=== PATIENT | male | born 1945 | race Caucasian/White ===

== ENCOUNTER 2018-07-02 04:53 | Inpatient (IN) | payer MEDICARE, OTHER ==
[~2018-07-02] VITALS: Ht 185.4 cm; Wt 88.5 kg
[2018-07-02] VITALS (16 sets, daily range): BP systolic 101–132; BP diastolic 42–68
[2018-07-02] MEDS ORDERED: fentaNYL/PF 50MCG/1 ML 2ML syringe IV ONE (05:10)
[2018-07-02] MEDS ORDERED: heparin 10,000 units/1 ML INJ IV ONE (05:10)
[2018-07-02] MEDS ORDERED: etomidate 2mg/ml inj. IV ONE (05:10)
[2018-07-02] MEDS ORDERED: ondansetron/PF 4mg/2ml inj IV ONE (05:10)
[2018-07-02 05:30] LABS: BASOPHILS % (AUTO) 0.7 % (0-1); EOSINOPHILS # (AUTO) 0.1 X10'3 (0-0.9); HEMATOCRIT 45.2 % (42.0-52.0); HEMOGLOBIN 15.4 g/dl (14.0-17.9); LYMPHOCYTES # (AUTO) 1.1 X10'3 (1.1-4.8); LYMPHOCYTES % (AUTO) 26.3 % (21-51); MEAN CORPUSCULAR HEMOGLOBIN 28.9 PG (27.0-31.0); MEAN CORPUSCULAR VOLUME 84.9 FL (78-98); MEAN PLATELET VOLUME 9.4 FL (7.4-10.4); MONOCYTES # (AUTO) 0.4 X10'3 (0-0.9); MONOCYTES % (AUTO) 9.1 % (2-12); NEUTROPHILS # (AUTO) 2.6 X10'3 (1.8-7.7); NEUTROPHILS % (AUTO) 60.9 % (42-75); PLATELET COUNT 185 X10'3 (140-440); RED BLOOD COUNT 5.32 X10'6 (4.70-6.10); RED CELL DISTRIBUTION WIDTH 13.4 % (11.5-14.5); WHITE BLOOD COUNT 4.3 X10'3 (4.5-11.0)
[2018-07-02 05:38] LABS: ALANINE AMINOTRANSFERASE 24 U/L (12-78); ALBUMIN 3.7 G/DL (3.4-5.0); ALBUMIN/GLOBULIN RATIO 1.2 (1.1-1.5); ALKALINE PHOSPHATASE 49 IU/L (46-116); ANION GAP 7 (8-16); ASPARTATE AMINO TRANSFERASE 18 U/L (10-37); BILIRUBIN,TOTAL 0.6 MG/DL (0.1-1.0); BLOOD UREA NITROGEN 16 MG/DL (7-18); BUN/CREATININE RATIO 13.3 (5.4-32.0); CALCIUM 8.7 MG/DL (8.5-10.1); CHLORIDE 108 MMOL/L (99-107); GLUCOSE 81 MG/DL (70-104); SODIUM 143 MMOL/L (135-145); TOTAL CARBON DIOXIDE 28.4 MMOL/L (24-32); TOTAL PROTEIN 6.9 G/DL (6.4-8.2); eGFR 59 ML/MIN
[2018-07-02] MEDS ORDERED: APIX5TAB3 PO (05:55)
[2018-07-02] MEDS ORDERED: SOTA80TA PO (05:55)
[2018-07-02 06:03] LABS: D-DIMER 0.32 MG/L FEU (0-0.50); PARTIAL THROMBOPLASTIN TIME 28 SECONDS (22-32); PROTHROMBIN TIME 10.4 SECONDS (9.0-12.0)
[2018-07-02] MEDS ORDERED: heparin 25,000 UNIT/250ml bag 250 ML IV SCH ×2 (06:41→08:18)
[2018-07-02] MEDS: heparin 10,000 units/1 ML INJ IV PRN (07:23)
[2018-07-02] MEDS: heparin 25,000 UNIT/250ml bag 250 ML IV SCH ×3 (07:26→19:20)
[2018-07-02] MEDS ORDERED: ondansetron/PF 4mg/2ml inj IV PRN (08:15)
[2018-07-02] MEDS ORDERED: magnesium 1gm/100ml D5W IVPB 100 ML IV PRN (08:15)
[2018-07-02] MEDS ORDERED: potassium Cl 20 mEq SR tablet PO PRN ×2 (08:15)
[2018-07-02] MEDS ORDERED: potassium Cl 40MEQ/NS 500ml 500 ML IV PRN ×2 (08:15)
[2018-07-02] MEDS ORDERED: bisacodyl 10mg suppository rectal RC PRN (08:15)
[2018-07-02] MEDS ORDERED: magnesium 4gm in 100ml NS 100 ML IV PRN (08:15)
[2018-07-02] MEDS ORDERED: magnesium hydroxide 30ml (MOM) UD suspension PO PRN (08:15)
[2018-07-02] MEDS ORDERED: acetaminophen 325mg tablet PO PRN (08:15)
[2018-07-02] MEDS ORDERED: morphine 2 MG/ML inj. syringe IV PRN ×2 (08:15)
[2018-07-02] MEDS ORDERED: mag hydrox/Alum hydrox/simeth 30ml oral suspension PO PRN (08:15)
[2018-07-02] MEDS ORDERED: metoprolol tartrate 1mg/ml inj IV PRN (08:20)
[2018-07-02] MEDS ORDERED: aminophylline 250mg/10ml inj. IV PRN (08:20)
[2018-07-02] MEDS: aspirin 81mg tablet.DR PO SCH (08:20)
[2018-07-02] MEDS ORDERED: regadenoson 0.4mg/5ml syringe IV ONE ×2 (08:20→14:58)
[2018-07-02] MEDS ORDERED: nitroGLYCERIN 0.4mg SUBLingual tab SL PRN ×2 (08:20)
[2018-07-02] MEDS ORDERED: metoprolol tartrate 25mg tablet PO SCH (08:20)
[2018-07-02] MEDS ORDERED: heparin 10,000 units/1 ML INJ IV PRN (08:20)
[2018-07-02] MEDS ORDERED: FERR325T28 PO (08:42)
[2018-07-02] MEDS ORDERED: CHOL10002 PO (08:42)
[2018-07-02] MEDS ORDERED: ASPI-611 PO (08:43)
[2018-07-02] MEDS ORDERED: CYAN-19 PO (08:44)
[2018-07-02] MEDS ORDERED: SIMV20TA5 PO (08:44)
[2018-07-02] MEDS ORDERED: heparin 10,000 units/1 ML INJ ONE (09:00)
[2018-07-02] MEDS ORDERED: papaverine 30 mg/ml 2ml inj. ONE (09:00)
[2018-07-02] MEDS: potassium Cl 20mEq in NS 1,000 ML IV SCH ×2 (09:56→22:29)
[2018-07-02] MEDS ORDERED: aminophylline inj. 10 ML IV ONE (14:58)
[2018-07-02] MEDS: docusate sod 100mg capsule PO SCH (19:06)
[2018-07-02] MEDS: metoprolol tartrate 12.5mg (1/2 tablet) PO SCH (19:06)
[2018-07-03] VITALS (13 sets, daily range): BP systolic 108–160; BP diastolic 54–106
[2018-07-03] MEDS: heparin 10,000 units/1 ML INJ IV PRN (01:23)
[2018-07-03] MEDS: heparin 25,000 UNIT/250ml bag 250 ML IV SCH ×3 (01:25→21:28)
[2018-07-03] MEDS: potassium Cl 20mEq in NS 1,000 ML IV SCH (02:09)
[2018-07-03 06:11] LABS: BASOPHILS % (AUTO) 0.6 % (0-1); EOSINOPHILS # (AUTO) 0.1 X10'3 (0-0.9); EOSINOPHILS % (AUTO) 3.7 % (0-6); HEMATOCRIT 42.8 % (42.0-52.0); HEMOGLOBIN 14.3 g/dl (14.0-17.9); LYMPHOCYTES # (AUTO) 0.9 X10'3 (1.1-4.8); LYMPHOCYTES % (AUTO) 23.1 % (21-51); MEAN CORPUSCULAR HEMOGLOBIN 28.8 PG (27.0-31.0); MEAN CORPUSCULAR HGB CONC 33.5 % (33.0-36.5); MEAN PLATELET VOLUME 9.7 FL (7.4-10.4); MONOCYTES # (AUTO) 0.3 X10'3 (0-0.9); MONOCYTES % (AUTO) 7.1 % (2-12); NEUTROPHILS # (AUTO) 2.5 X10'3 (1.8-7.7); NEUTROPHILS % (AUTO) 65.5 % (42-75); PLATELET COUNT 171 X10'3 (140-440); RED BLOOD COUNT 4.98 X10'6 (4.70-6.10); RED CELL DISTRIBUTION WIDTH 13.3 % (11.5-14.5); WHITE BLOOD COUNT 3.8 X10'3 (4.5-11.0)
[2018-07-03 06:47] LABS: ALANINE AMINOTRANSFERASE 22 U/L (12-78); ALBUMIN 3.5 G/DL (3.4-5.0); ALBUMIN/GLOBULIN RATIO 1.1 (1.1-1.5); ALKALINE PHOSPHATASE 41 IU/L (46-116); ANION GAP 8 (8-16); ASPARTATE AMINO TRANSFERASE 22 U/L (10-37); BILIRUBIN,TOTAL 0.7 MG/DL (0.1-1.0); BLOOD UREA NITROGEN 12 MG/DL (7-18); BUN/CREATININE RATIO 9.3 (5.4-32.0); CALCIUM 8.5 MG/DL (8.5-10.1); CHLORIDE 108 MMOL/L (99-107); CHOL/HDL RATIO 2.4 (0.00-4.99); CHOLESTEROL 145 MG/DL (0-200); CREATININE 1.29 MG/DL (0.60-1.10); GLUCOSE 88 MG/DL (70-104); HDL CHOLESTEROL 60 MG/DL (35-60); LDL CHOLESTEROL 82 MG/DL (50-100); POTASSIUM 4.4 MMOL/L (3.5-5.1); SODIUM 142 MMOL/L (135-145); TOTAL CARBON DIOXIDE 26.3 MMOL/L (24-32); TOTAL PROTEIN 6.6 G/DL (6.4-8.2); TRIGLYCERIDES 49 MG/DL (20-135); eGFR 55 ML/MIN
[2018-07-03] MEDS: cyanocobalamin 500mcg tablet PO SCH (07:17)
[2018-07-03] MEDS: aspirin 81mg tablet.DR PO SCH (07:17)
[2018-07-03] MEDS: vitamin D (cholecalciferol) 1,000 unit tablet PO SCH (07:17)
[2018-07-03] MEDS: atorvastatin 20mg tablet PO SCH (07:17)
[2018-07-03] MEDS: docusate sod 100mg capsule PO SCH ×2 (07:19→21:07)
[2018-07-03] MEDS: K and/or MAG REPLACEMENT MC SCH (07:31)
[2018-07-03] MEDS: metoprolol tartrate 12.5mg (1/2 tablet) PO SCH ×2 (07:34→20:00)
[2018-07-03] MEDS ORDERED: non-formulary drug (Aspirin (Aspir 81) 1 TAB) PO SCH (08:00)
[2018-07-03] MEDS ORDERED: iohexol 350MG/ML 100ml bottle IV ONE (13:08)
[2018-07-03] MEDS ORDERED: fentaNYL/PF 50MCG/1 ML 2ML syringe ONE (13:08)
[2018-07-03] MEDS ORDERED: midazolam 2 mg/2 ml injection ONE (13:08)
[2018-07-03] MEDS ORDERED: LIDOcaine 1% (10mg/ml)w/preservative injection 20ml MDV ONE (13:08)
[2018-07-03] MEDS ORDERED: iohexol 350 MG/ML 50ML vial IV ONE (13:34)
[2018-07-03] MEDS ORDERED: HYDROcodone/acetaminophen 10/325mg tab PO PRN (15:00)
[2018-07-03] MEDS ORDERED: HYDROcodone/acetaminophen 5mg/325mg tablet PO PRN (15:00)
[2018-07-03] MEDS ORDERED: proCHLORperazine 10 MG/2 ml inj IV PRN (15:00)
[2018-07-03] MEDS: normal saline 1000ml 1,000 ML IV SCH (15:00)
[2018-07-03] MEDS ORDERED: nitroGLYCERIN 0.4mg SUBLingual tab SL PRN (15:00)
[2018-07-03] MEDS ORDERED: OXAZEpam 15mg capsule PO PRN (15:00)
[2018-07-04] VITALS (7 sets, daily range): BP systolic 111–144; BP diastolic 50–91
[2018-07-04] MEDS: normal saline 1000ml 1,000 ML IV SCH ×2 (01:00→11:00)
[2018-07-04] MEDS: heparin 25,000 UNIT/250ml bag 250 ML IV SCH ×3 (02:16→21:04)
[2018-07-04] MEDS: potassium Cl 20mEq in NS 1,000 ML IV SCH ×2 (03:05→10:14)
[2018-07-04 05:44] LABS: BASOPHILS % (AUTO) 0.3 % (0-1); EOSINOPHILS # (AUTO) 0.1 X10'3 (0-0.9); EOSINOPHILS % (AUTO) 1.4 % (0-6); HEMATOCRIT 37.7 % (42.0-52.0); HEMOGLOBIN 12.9 g/dl (14.0-17.9); LYMPHOCYTES # (AUTO) 0.8 X10'3 (1.1-4.8); LYMPHOCYTES % (AUTO) 18.7 % (21-51); MEAN CORPUSCULAR HGB CONC 34.2 % (33.0-36.5); MEAN CORPUSCULAR VOLUME 84.8 FL (78-98); MEAN PLATELET VOLUME 9.6 FL (7.4-10.4); MONOCYTES # (AUTO) 0.3 X10'3 (0-0.9); MONOCYTES % (AUTO) 7.7 % (2-12); NEUTROPHILS % (AUTO) 71.9 % (42-75); PLATELET COUNT 155 X10'3 (140-440); RED BLOOD COUNT 4.45 X10'6 (4.70-6.10); RED CELL DISTRIBUTION WIDTH 13.4 % (11.5-14.5); WHITE BLOOD COUNT 4.2 X10'3 (4.5-11.0)
[2018-07-04 06:01] LABS: ALANINE AMINOTRANSFERASE 19 U/L (12-78); ALBUMIN 3.1 G/DL (3.4-5.0); ALBUMIN/GLOBULIN RATIO 1.1 (1.1-1.5); ALKALINE PHOSPHATASE 37 IU/L (46-116); ANION GAP 8 (8-16); ASPARTATE AMINO TRANSFERASE 17 U/L (10-37); BILIRUBIN,TOTAL 0.6 MG/DL (0.1-1.0); BLOOD UREA NITROGEN 14 MG/DL (7-18); BUN/CREATININE RATIO 13.3 (5.4-32.0); CALCIUM 8.4 MG/DL (8.5-10.1); CHLORIDE 108 MMOL/L (99-107); CREATININE 1.05 MG/DL (0.60-1.10); GLUCOSE 85 MG/DL (70-104); MAGNESIUM 1.8 MG/DL (1.5-2.4); POTASSIUM 3.7 MMOL/L (3.5-5.1); SODIUM 142 MMOL/L (135-145); TOTAL CARBON DIOXIDE 26.4 MMOL/L (24-32); TOTAL PROTEIN 5.9 G/DL (6.4-8.2); eGFR 69 ML/MIN
[2018-07-04] MEDS: heparin 10,000 units/1 ML INJ IV PRN ×2 (07:54→21:05)
[2018-07-04] MEDS ORDERED: potassium Cl 40MEQ/NS 500ml 500 ML IV PRN ×2 (08:10)
[2018-07-04] MEDS ORDERED: magnesium 4gm in 100ml NS 100 ML IV PRN (08:10)
[2018-07-04] MEDS ORDERED: potassium Cl 20 mEq SR tablet PO PRN (08:10)
[2018-07-04] MEDS: metoprolol tartrate 12.5mg (1/2 tablet) PO SCH ×2 (08:28→20:00)
[2018-07-04] MEDS: docusate sod 100mg capsule PO SCH ×2 (08:28→20:50)
[2018-07-04] MEDS: atorvastatin 20mg tablet PO SCH (08:28)
[2018-07-04] MEDS: magnesium Cl slow-release 64mg tablet PO PRN ×2 (08:28→21:07)
[2018-07-04] MEDS: cyanocobalamin 500mcg tablet PO SCH (08:29)
[2018-07-04] MEDS: vitamin D (cholecalciferol) 1,000 unit tablet PO SCH (08:29)
[2018-07-04] MEDS: ferrous sulfate 325mg tablet PO SCH (08:30)
[2018-07-04] MEDS: aspirin 81mg tablet.DR PO SCH (08:30)
[2018-07-04] MEDS: K and/or MAG REPLACEMENT MC SCH ×2 (08:30→13:29)
[2018-07-04] MEDS: potassium Cl 20 mEq SR tablet PO PRN (20:50)
[2018-07-05] VITALS (7 sets, daily range): BP systolic 103–133; BP diastolic 44–63
[2018-07-05 03:21] LABS: BASOPHILS % (AUTO) 0.8 % (0-1); EOSINOPHILS # (AUTO) 0.1 X10'3 (0-0.9); EOSINOPHILS % (AUTO) 4.2 % (0-6); HEMATOCRIT 38.4 % (42.0-52.0); HEMOGLOBIN 13.1 g/dl (14.0-17.9); LYMPHOCYTES # (AUTO) 0.7 X10'3 (1.1-4.8); LYMPHOCYTES % (AUTO) 24.2 % (21-51); MEAN CORPUSCULAR HEMOGLOBIN 29.1 PG (27.0-31.0); MEAN CORPUSCULAR HGB CONC 34.1 % (33.0-36.5); MEAN CORPUSCULAR VOLUME 85.2 FL (78-98); MEAN PLATELET VOLUME 9.2 FL (7.4-10.4); MONOCYTES # (AUTO) 0.3 X10'3 (0-0.9); MONOCYTES % (AUTO) 9.2 % (2-12); NEUTROPHILS # (AUTO) 1.9 X10'3 (1.8-7.7); NEUTROPHILS % (AUTO) 61.6 % (42-75); PLATELET COUNT 146 X10'3 (140-440); RED BLOOD COUNT 4.51 X10'6 (4.70-6.10); RED CELL DISTRIBUTION WIDTH 13.6 % (11.5-14.5); WHITE BLOOD COUNT 3.1 X10'3 (4.5-11.0)
[2018-07-05 03:41] LABS: ALANINE AMINOTRANSFERASE 21 U/L (12-78); ALBUMIN 3.2 G/DL (3.4-5.0); ALBUMIN/GLOBULIN RATIO 1.1 (1.1-1.5); ALKALINE PHOSPHATASE 40 IU/L (46-116); ANION GAP 11 (8-16); ASPARTATE AMINO TRANSFERASE 20 U/L (10-37); BILIRUBIN,TOTAL 0.7 MG/DL (0.1-1.0); BLOOD UREA NITROGEN 15 MG/DL (7-18); BUN/CREATININE RATIO 14.9 (5.4-32.0); CALCIUM 8.3 MG/DL (8.5-10.1); CHLORIDE 107 MMOL/L (99-107); CREATININE 1.01 MG/DL (0.60-1.10); GLUCOSE 88 MG/DL (70-104); MAGNESIUM 1.9 MG/DL (1.5-2.4); POTASSIUM 3.9 MMOL/L (3.5-5.1); SODIUM 142 MMOL/L (135-145); TOTAL CARBON DIOXIDE 23.8 MMOL/L (24-32); TOTAL PROTEIN 6.1 G/DL (6.4-8.2); eGFR 72 ML/MIN
[2018-07-05] MEDS: magnesium Cl slow-release 64mg tablet PO PRN (04:14)
[2018-07-05] MEDS: potassium Cl 20 mEq SR tablet PO PRN (04:14)
[2018-07-05] MEDS: potassium Cl 20mEq in NS 1,000 ML IV SCH (04:14)
[2018-07-05] MEDS: heparin 25,000 UNIT/250ml bag 250 ML IV SCH ×2 (04:18→11:01)
[2018-07-05] MEDS: docusate sod 100mg capsule PO SCH ×2 (08:33→20:42)
[2018-07-05] MEDS: aspirin 81mg tablet.DR PO SCH (08:34)
[2018-07-05] MEDS: vitamin D (cholecalciferol) 1,000 unit tablet PO SCH (08:34)
[2018-07-05] MEDS: cyanocobalamin 500mcg tablet PO SCH (08:34)
[2018-07-05] MEDS: ferrous sulfate 325mg tablet PO SCH (08:34)
[2018-07-05] MEDS: metoprolol tartrate 12.5mg (1/2 tablet) PO SCH ×2 (08:34→20:42)
[2018-07-05] MEDS: atorvastatin 20mg tablet PO SCH (08:34)
[2018-07-05] MEDS: heparin 10,000 units/1 ML INJ IV PRN (10:56)
[2018-07-05] MEDS: enoxaparin 100mg/ml syringe SUBCUT SCH (20:41)
[2018-07-06 02:53] VITALS: BP 133/64
[2018-07-06 06:00] VITALS: BP 126/60
[2018-07-06 06:49] LABS: BASOPHILS % (AUTO) 0.4 % (0-1); EOSINOPHILS # (AUTO) 0.1 X10'3 (0-0.9); EOSINOPHILS % (AUTO) 3.2 % (0-6); HEMATOCRIT 41.2 % (42.0-52.0); HEMOGLOBIN 13.8 g/dl (14.0-17.9); LYMPHOCYTES # (AUTO) 0.6 X10'3 (1.1-4.8); LYMPHOCYTES % (AUTO) 21.8 % (21-51); MEAN CORPUSCULAR HEMOGLOBIN 28.1 PG (27.0-31.0); MEAN CORPUSCULAR HGB CONC 33.4 % (33.0-36.5); MEAN CORPUSCULAR VOLUME 84.2 FL (78-98); MEAN PLATELET VOLUME 9.7 FL (7.4-10.4); MONOCYTES # (AUTO) 0.2 X10'3 (0-0.9); NEUTROPHILS # (AUTO) 1.8 X10'3 (1.8-7.7); NEUTROPHILS % (AUTO) 66.6 % (42-75); PLATELET COUNT 163 X10'3 (140-440); RED BLOOD COUNT 4.89 X10'6 (4.70-6.10); RED CELL DISTRIBUTION WIDTH 13.2 % (11.5-14.5); WHITE BLOOD COUNT 2.7 X10'3 (4.5-11.0)
[2018-07-06 07:02] LABS: ALANINE AMINOTRANSFERASE 27 U/L (12-78); ALBUMIN 3.4 G/DL (3.4-5.0); ALBUMIN/GLOBULIN RATIO 1.1 (1.1-1.5); ALKALINE PHOSPHATASE 38 IU/L (46-116); ANION GAP 10 (8-16); ASPARTATE AMINO TRANSFERASE 26 U/L (10-37); BILIRUBIN,TOTAL 0.7 MG/DL (0.1-1.0); BLOOD UREA NITROGEN 16 MG/DL (7-18); BUN/CREATININE RATIO 15.8 (5.4-32.0); CHLORIDE 107 MMOL/L (99-107); CREATININE 1.01 MG/DL (0.60-1.10); GLUCOSE 87 MG/DL (70-104); MAGNESIUM 1.9 MG/DL (1.5-2.4); POTASSIUM 3.8 MMOL/L (3.5-5.1); SODIUM 142 MMOL/L (135-145); TOTAL CARBON DIOXIDE 25.5 MMOL/L (24-32); TOTAL PROTEIN 6.5 G/DL (6.4-8.2); eGFR 72 ML/MIN
[2018-07-06] MEDS: K and/or MAG REPLACEMENT MC SCH (08:00)
[2018-07-06] MEDS: cyanocobalamin 500mcg tablet PO SCH (08:43)
[2018-07-06] MEDS: vitamin D (cholecalciferol) 1,000 unit tablet PO SCH (08:43)
[2018-07-06] MEDS: docusate sod 100mg capsule PO SCH ×2 (08:44→19:49)
[2018-07-06] MEDS: aspirin 81mg tablet.DR PO SCH (08:44)
[2018-07-06] MEDS: enoxaparin 100mg/ml syringe SUBCUT SCH ×2 (08:46→19:50)
[2018-07-06] MEDS: metoprolol tartrate 12.5mg (1/2 tablet) PO SCH ×2 (08:46→19:49)
[2018-07-06] MEDS: atorvastatin 20mg tablet PO SCH (08:46)
[2018-07-06] MEDS ORDERED: insulin regular, human inj. 100 UNITS in normal saline 100ml IV soln 100 ML IV SCH ×2 (10:30)
[2018-07-06] MEDS ORDERED: cefazolin/dext.iso 2gm/100ml 100 ML IV ONE (10:30)
[2018-07-06] MEDS ORDERED: dextrose 50%-water 50ml dispensing syringe IV PRN (10:30)
[2018-07-06] MEDS ORDERED: MESSAGE TO NURSING PO ONE ×4 (10:30)
[2018-07-06] MEDS ORDERED: vancomycin/NS 1 GM ADD-VANTAGE 250 ML IV ONE (10:30)
[2018-07-06 11:00] VITALS: BP 137/72
[2018-07-06 12:26] LABS: INR 1.1 INR; PARTIAL THROMBOPLASTIN TIME 36 SECONDS (22-32); PROTHROMBIN TIME 10.9 SECONDS (9.0-12.0)
[2018-07-06] MEDS ORDERED: insulin Lispro (HumaLOG) vial - multi-dose SQ SCH (13:00)
[2018-07-06 15:00] VITALS: BP 118/64
[2018-07-06 19:00] VITALS: BP 110/61
[2018-07-06] MEDS ORDERED: mupirocin 2% ointment 22GM NS SCH (20:00)
[2018-07-06 23:00] VITALS: BP 114/59
[2018-07-07 03:00] VITALS: BP 107/60
[2018-07-07 06:00] VITALS: BP 114/62
[2018-07-07 06:01] LABS: BASOPHILS % (AUTO) 0.5 % (0-1); EOSINOPHILS # (AUTO) 0.1 X10'3 (0-0.9); EOSINOPHILS % (AUTO) 2.8 % (0-6); HEMATOCRIT 41.5 % (42.0-52.0); HEMOGLOBIN 14.2 g/dl (14.0-17.9); LYMPHOCYTES # (AUTO) 0.8 X10'3 (1.1-4.8); LYMPHOCYTES % (AUTO) 22.8 % (21-51); MEAN CORPUSCULAR HGB CONC 34.2 % (33.0-36.5); MEAN CORPUSCULAR VOLUME 84.8 FL (78-98); MEAN PLATELET VOLUME 9.6 FL (7.4-10.4); MONOCYTES # (AUTO) 0.3 X10'3 (0-0.9); NEUTROPHILS # (AUTO) 2.2 X10'3 (1.8-7.7); NEUTROPHILS % (AUTO) 65.9 % (42-75); PLATELET COUNT 172 X10'3 (140-440); RED BLOOD COUNT 4.89 X10'6 (4.70-6.10); RED CELL DISTRIBUTION WIDTH 13.5 % (11.5-14.5); WHITE BLOOD COUNT 3.3 X10'3 (4.5-11.0)
[2018-07-07 06:29] LABS: ALANINE AMINOTRANSFERASE 39 U/L (12-78); ALBUMIN 3.4 G/DL (3.4-5.0); ALBUMIN/GLOBULIN RATIO 1.1 (1.1-1.5); ALKALINE PHOSPHATASE 46 IU/L (46-116); ANION GAP 9 (8-16); ASPARTATE AMINO TRANSFERASE 35 U/L (10-37); BILIRUBIN,TOTAL 0.7 MG/DL (0.1-1.0); BLOOD UREA NITROGEN 19 MG/DL (7-18); BUN/CREATININE RATIO 16.1 (5.4-32.0); CALCIUM 9.3 MG/DL (8.5-10.1); CHLORIDE 105 MMOL/L (99-107); CREATININE 1.18 MG/DL (0.60-1.10); GLUCOSE 89 MG/DL (70-104); MAGNESIUM 1.8 MG/DL (1.5-2.4); SODIUM 141 MMOL/L (135-145); TOTAL CARBON DIOXIDE 27.5 MMOL/L (24-32); TOTAL PROTEIN 6.6 G/DL (6.4-8.2); eGFR 61 ML/MIN
[2018-07-07] MEDS: K and/or MAG REPLACEMENT MC SCH (08:00)
[2018-07-07] MEDS: atorvastatin 20mg tablet PO SCH (08:02)
[2018-07-07] MEDS: metoprolol tartrate 12.5mg (1/2 tablet) PO SCH ×2 (08:02→20:27)
[2018-07-07] MEDS: cyanocobalamin 500mcg tablet PO SCH (08:02)
[2018-07-07] MEDS: aspirin 81mg tablet.DR PO SCH (08:02)
[2018-07-07] MEDS: docusate sod 100mg capsule PO SCH ×2 (08:02→20:27)
[2018-07-07] MEDS: ferrous sulfate 325mg tablet PO SCH (08:02)
[2018-07-07] MEDS: enoxaparin 100mg/ml syringe SUBCUT SCH ×2 (08:02→20:27)
[2018-07-07] MEDS: vitamin D (cholecalciferol) 1,000 unit tablet PO SCH (08:04)
[2018-07-07] MEDS ORDERED: MESSAGE TO NURSING PO ONE (10:00)
[2018-07-07] MEDS ORDERED: iohexol 350MG/ML 100ml bottle IV ONE (11:40)
[2018-07-07 14:29] VITALS: BP 111/64
[2018-07-07 18:00] VITALS: BP 123/77
[2018-07-07] MEDS: magnesium Cl slow-release 64mg tablet PO SCH (20:27)
[2018-07-07 22:00] VITALS: BP 110/52
[2018-07-08] VITALS (8 sets, daily range): BP systolic 97–127; BP diastolic 52–69
[2018-07-08 07:12] LABS: MAGNESIUM 1.9 MG/DL (1.5-2.4); POTASSIUM 3.6 MMOL/L (3.5-5.1)
[2018-07-08] MEDS: vitamin D (cholecalciferol) 1,000 unit tablet PO SCH (07:39)
[2018-07-08] MEDS: aspirin 81mg tablet.DR PO SCH (07:39)
[2018-07-08] MEDS: cyanocobalamin 500mcg tablet PO SCH (07:39)
[2018-07-08] MEDS: docusate sod 100mg capsule PO SCH ×2 (07:40→20:18)
[2018-07-08] MEDS: atorvastatin 20mg tablet PO SCH (07:40)
[2018-07-08] MEDS: magnesium Cl slow-release 64mg tablet PO SCH ×2 (07:40→20:17)
[2018-07-08] MEDS: K and/or MAG REPLACEMENT MC SCH (08:00)
[2018-07-08] MEDS: metoprolol tartrate 12.5mg (1/2 tablet) PO SCH ×2 (09:14→20:18)
[2018-07-08 10:06] LABS: ABG BASE EXCESS 0.7 mmol/L (-2.0-3.0); ABG HCO3 23.2 mmol/L (22.0-26.0); ABG OXYGEN SATURATION 96.7 % (95-98); ABG PCO2 (T) 31.2 mmHg (35.0-48.0); ABG PH (T) 7.489 (7.350-7.450); ABG PO2 (T) 84.1 mmHg (83-108); ALLEN'S TEST Positive; FCOHb 0.6 % (0.5-1.5); FO2Hb 96.1 % (94-100); TOTAL HEMOGLOBIN 14.4 G/dl (14.0-18.0)
[2018-07-08 14:47] LABS: CLARITY,URINE CLEAR (Clear); COLOR,URINE YELLOW (Yellow); GLUCOSE, URINE NEGATIVE (Neg); KETONES,URINE NEGATIVE (Neg); LEUKOCYTE ESTERASE ,URINE NEGATIVE (Neg); NITRITES, URINE NEGATIVE (Neg); OCCULT BLOOD,URINE TRACE-INTACT (Neg); PROTEIN,URINE NEGATIVE (Neg); UROBILINOGEN,URINE 0.2 E.U/dL (0.2-1.0)
[2018-07-08 14:48] LABS: UA COLLECTION TYPE VOIDED
[2018-07-08 15:06] LABS: SQUAMOUS EPITHELIAL CELL,UR NONE SEEN /LPF (FEW)
[2018-07-08 15:07] LABS: RBC,URINE 0-2 /HPF (0-2); WBC,URINE 0-4 /HPF (0-4)
[2018-07-08 15:08] LABS: BACTERIA,URINE FEW /HPF (Neg)
[2018-07-08] MEDS ORDERED: mupirocin 2% nasal ointment 1gm UD NS SCH (20:00)
[2018-07-09] VITALS (12 sets, daily range): BP systolic 95–128; BP diastolic 8–62
[2018-07-09] MEDS ORDERED: LORazepam 2 mg/ml vial IV ONE (06:00)
[2018-07-09] MEDS ORDERED: vancomycin/NS 1 GM ADD-VANTAGE 250 ML IV ONE (06:00)
[2018-07-09] MEDS ORDERED: cefazolin/dext.iso 2gm/100ml 100 ML IV ONE (06:00)
[2018-07-09] MEDS ORDERED: insulin regular, human inj. 100 UNITS in normal saline 100ml IV soln 100 ML IV SCH ×2 (06:00)
[2018-07-09] MEDS ORDERED: famotidine 20mg tablet PO ONE (06:00)
[2018-07-09 06:38] LABS: BASOPHILS % (AUTO) 0.4 % (0-1); EOSINOPHILS # (AUTO) 0.1 X10'3 (0-0.9); HEMATOCRIT 42.8 % (42.0-52.0); HEMOGLOBIN 14.6 g/dl (14.0-17.9); LYMPHOCYTES # (AUTO) 0.6 X10'3 (1.1-4.8); LYMPHOCYTES % (AUTO) 21.9 % (21-51); MEAN CORPUSCULAR HEMOGLOBIN 28.9 PG (27.0-31.0); MEAN CORPUSCULAR HGB CONC 34.1 % (33.0-36.5); MEAN CORPUSCULAR VOLUME 84.6 FL (78-98); MEAN PLATELET VOLUME 9.3 FL (7.4-10.4); MONOCYTES # (AUTO) 0.3 X10'3 (0-0.9); MONOCYTES % (AUTO) 8.6 % (2-12); NEUTROPHILS # (AUTO) 1.9 X10'3 (1.8-7.7); NEUTROPHILS % (AUTO) 66.1 % (42-75); PLATELET COUNT 159 X10'3 (140-440); RED BLOOD COUNT 5.06 X10'6 (4.70-6.10); RED CELL DISTRIBUTION WIDTH 13.2 % (11.5-14.5); WHITE BLOOD COUNT 2.9 X10'3 (4.5-11.0)
[2018-07-09] MEDS ORDERED: sodium bicarbonate (8.4%) 1 mEq/ml syringe ONE (06:39)
[2018-07-09] MEDS ORDERED: LIDOcaine 2% (20 mg/ml) 5ml cardiac syringe ONE (06:39)
[2018-07-09] MEDS ORDERED: calcium chloride 100 MG/1 ML inj IV ONE (06:39)
[2018-07-09] MEDS ORDERED: heparin 10,000 units/1 ML INJ ONE (06:39)
[2018-07-09] MEDS ORDERED: aminocaproic acid 250 MG/1 ML inj. ONE (06:39)
[2018-07-09] MEDS ORDERED: nitroGLYCERIN in D5W 50mg/250ml (Tridil) infusion IV ONE (06:39)
[2018-07-09] MEDS ORDERED: potassium Cl 2 mEq/ml inj IV ONE (06:39)
[2018-07-09] MEDS ORDERED: albumin (human) 25% 100 ML IV solution IV ONE (06:39)
[2018-07-09] MEDS ORDERED: methylPREDNISolone sod succ 1000mg vial ONE (06:39)
[2018-07-09] MEDS ORDERED: phenylephrine 10mg/ml inj. ONE (06:39)
[2018-07-09] MEDS ORDERED: magnesium sulf 1 GM/2 ML ONE (06:39)
[2018-07-09] MEDS ORDERED: protamine sulf. 10mg/ml inj. IV ONE (06:39)
[2018-07-09] MEDS ORDERED: sevoflurane 250ml liquid IH ONE (06:39)
[2018-07-09] MEDS ORDERED: DOPamine/D5W 400mg/250ml bag IV ONE (06:39)
[2018-07-09 06:44] LABS: ALBUMIN 3.5 G/DL (3.4-5.0); ANION GAP 8 (8-16); BLOOD UREA NITROGEN 17 MG/DL (7-18); CHLORIDE 105 MMOL/L (99-107); CREATININE 1.06 MG/DL (0.60-1.10); GLUCOSE 91 MG/DL (70-104); POTASSIUM 3.8 MMOL/L (3.5-5.1); SODIUM 138 MMOL/L (135-145); TOTAL CARBON DIOXIDE 24.7 MMOL/L (24-32); eGFR 68 ML/MIN
[2018-07-09] MEDS ORDERED: SUFENTANIL CITRATE 50 MCG/ML 2ml ampule IV ONE (06:44)
[2018-07-09] MEDS ORDERED: MIDAZolam 1mg/ml 10ml vial ONE (06:44)
[2018-07-09 06:50] LABS: INR 1.1 INR; PROTHROMBIN TIME 10.8 SECONDS (9.0-12.0)
[2018-07-09] MEDS ORDERED: rocuronium 10mg/ml inj IV ONE ×3 (06:57→08:48)
[2018-07-09] MEDS ORDERED: propofol inj 20 ML IV ONE (06:57)
[2018-07-09] MEDS ORDERED: heparin 10,000 units/1 ML INJ IR ONE (07:00)
[2018-07-09] MEDS ORDERED: papaverine 30 mg/ml 2ml inj. IA ONE (07:00)
[2018-07-09 07:30] LABS: ABG BASE EXCESS -3.2 mmol/L (-2.0-3.0); ABG HCO3 22.1 mmol/L (22.0-26.0); ABG OXYGEN SATURATION 99.2 % (95-98); ABG PCO2 40.3 mmHg (35.0-45.0); ABG PH 7.356 (7.350-7.450); ABG PO2 365.8 mmHg (60.0-100.0); CL (ABG) 106 mmol/L (99-107); FCOHb 0.7 % (0.5-1.5); FMetHb 0.3 % (0.3-1.12); FO2Hb 98.2 % (94-100); GLUCOSE (ABG) 86 mg/dl (70-105); IONIZED CA (ABG) 1.17 mmol/L (1.03-1.32); K (ABG) 4.1 mmol/L (3.3-5.1); NA (ABG) 134 mmol/L (135-145); TOTAL HEMOGLOBIN 14.1 G/dl (14.0-18.0)
[2018-07-09 07:46] LABS: PLATELET ESTIMATE NORMAL; TOTAL CELLS COUNTED 100
[2018-07-09 08:00] LABS: ACT @ 1.70 U 304 SEC (193-297); ACT @ 2.84 U 422 SEC (260-420); BASELINE ACT 145 SEC (101-148); PATIENT WEIGHT 92.0k KG
[2018-07-09] MEDS: cyanocobalamin 500mcg tablet PO SCH (08:00)
[2018-07-09 08:17] LABS: ABG BASE EXCESS VENOUS -2.2 mmol/L; ABG HCO3 VENOUS 24.6 mmol/L; ABG PCO2 VENOUS 50.5 mmHg; ABG PO2 VENOUS 53.8 mmHg; CL (ABG) 106 mmol/L (99-107); FCOHb VENOUS 0.7 %; FHHb VENOUS 13.9 %; FMetHb VENOUS 0.1 %; FO2Hb VENOUS 85.3 %; GLUCOSE (ABG) 101 mg/dl (70-105); IONIZED CA (ABG) 1.14 mmol/L (1.03-1.32); K (ABG) 4.2 mmol/L (3.3-5.1); NA (ABG) 133 mmol/L (135-145); TOTAL HEMOGLOBIN 13.8 G/dl (14.0-18.0)
[2018-07-09 08:50] LABS: ABG BASE EXCESS -3.4 mmol/L (-2.0-3.0); ABG HCO3 21.8 mmol/L (22.0-26.0); ABG OXYGEN SATURATION 98.9 % (95-98); ABG PCO2 39.5 mmHg (35.0-45.0); ABG PH 7.359 (7.350-7.450); ABG PO2 294.5 mmHg (60.0-100.0); CL (ABG) 105 mmol/L (99-107); FCOHb 0.3 % (0.5-1.5); FMetHb 0.1 % (0.3-1.12); FO2Hb 98.5 % (94-100); GLUCOSE (ABG) 89 mg/dl (70-105); IONIZED CA (ABG) 1.03 mmol/L (1.03-1.32); NA (ABG) 130 mmol/L (135-145); TOTAL HEMOGLOBIN 11.1 G/dl (14.0-18.0)
[2018-07-09 09:21] LABS: ABG BASE EXCESS -0.8 mmol/L (-2.0-3.0); ABG HCO3 24.4 mmol/L (22.0-26.0); ABG OXYGEN SATURATION 99.1 % (95-98); ABG PCO2 42.3 mmHg (35.0-45.0); ABG PH 7.379 (7.350-7.450); ABG PO2 291.7 mmHg (60.0-100.0); CL (ABG) 106 mmol/L (99-107); FCOHb 0.5 % (0.5-1.5); FMetHb 0.1 % (0.3-1.12); FO2Hb 98.5 % (94-100); GLUCOSE (ABG) 103 mg/dl (70-105); IONIZED CA (ABG) 1.06 mmol/L (1.03-1.32); K (ABG) 5.7 mmol/L (3.3-5.1); NA (ABG) 132 mmol/L (135-145); TOTAL HEMOGLOBIN 12.1 G/dl (14.0-18.0)
[2018-07-09 09:45] LABS: ABG BASE EXCESS -0.2 mmol/L (-2.0-3.0); ABG HCO3 25.3 mmol/L (22.0-26.0); ABG OXYGEN SATURATION 98.9 % (95-98); ABG PCO2 44.6 mmHg (35.0-45.0); ABG PH 7.371 (7.350-7.450); ABG PO2 236.7 mmHg (60.0-100.0); CL (ABG) 107 mmol/L (99-107); FCOHb 0.4 % (0.5-1.5); FMetHb 0.2 % (0.3-1.12); FO2Hb 98.3 % (94-100); GLUCOSE (ABG) 125 mg/dl (70-105); IONIZED CA (ABG) 1.03 mmol/L (1.03-1.32); K (ABG) 5.4 mmol/L (3.3-5.1); NA (ABG) 132 mmol/L (135-145); TOTAL HEMOGLOBIN 12.2 G/dl (14.0-18.0)
[2018-07-09 10:21] LABS: ABG BASE EXCESS -4.8 mmol/L (-2.0-3.0); ABG HCO3 22.1 mmol/L (22.0-26.0); ABG OXYGEN SATURATION 98.8 % (95-98); ABG PCO2 48.4 mmHg (35.0-45.0); ABG PH 7.277 (7.350-7.450); CL (ABG) 105 mmol/L (99-107); FCOHb 0.2 % (0.5-1.5); FMetHb 0.3 % (0.3-1.12); FO2Hb 98.3 % (94-100); GLUCOSE (ABG) 136 mg/dl (70-105); IONIZED CA (ABG) 1.09 mmol/L (1.03-1.32); NA (ABG) 131 mmol/L (135-145); TOTAL HEMOGLOBIN 12.3 G/dl (14.0-18.0)
[2018-07-09] MEDS ORDERED: ceFAZolin 1000mg inj ONE (10:50)
[2018-07-09 10:56] LABS: ABG BASE EXCESS -1.4 mmol/L (-2.0-3.0); ABG HCO3 24.1 mmol/L (22.0-26.0); ABG OXYGEN SATURATION 98.9 % (95-98); ABG PCO2 43.5 mmHg (35.0-45.0); ABG PH 7.361 (7.350-7.450); CL (ABG) 106 mmol/L (99-107); FCOHb 0.1 % (0.5-1.5); FMetHb 0.4 % (0.3-1.12); FO2Hb 98.4 % (94-100); GLUCOSE (ABG) 172 mg/dl (70-105); IONIZED CA (ABG) 1.02 mmol/L (1.03-1.32); K (ABG) 5.1 mmol/L (3.3-5.1); NA (ABG) 137 mmol/L (135-145); TOTAL HEMOGLOBIN 11.7 G/dl (14.0-18.0)
[2018-07-09 11:15] LABS: ABG BASE EXCESS 0.9 mmol/L (-2.0-3.0); ABG OXYGEN SATURATION 98.5 % (95-98); ABG PCO2 43.4 mmHg (35.0-45.0); ABG PH 7.395 (7.350-7.450); ABG PO2 202.4 mmHg (60.0-100.0); CL (ABG) 105 mmol/L (99-107); FCOHb 0.3 % (0.5-1.5); FMetHb 0.3 % (0.3-1.12); FO2Hb 97.9 % (94-100); GLUCOSE (ABG) 163 mg/dl (70-105); K (ABG) 4.7 mmol/L (3.3-5.1); NA (ABG) 132 mmol/L (135-145)
[2018-07-09] MEDS ORDERED: albumin (Human) 5% 250ml 250 ML IV ONE (11:17)
[2018-07-09 11:45] LABS: ABG BASE EXCESS VENOUS -1.1 mmol/L; ABG HCO3 VENOUS 24.4 mmol/L; ABG PCO2 VENOUS 43.5 mmHg; ABG PO2 VENOUS 40.4 mmHg; CL (ABG) 106 mmol/L (99-107); FCOHb VENOUS 0.9 %; FHHb VENOUS 23.8 %; FMetHb VENOUS 0.4 %; FO2Hb VENOUS 74.9 %; GLUCOSE (ABG) 152 mg/dl (70-105); K (ABG) 4.3 mmol/L (3.3-5.1); NA (ABG) 136 mmol/L (135-145); TOTAL HEMOGLOBIN 11.7 G/dl (14.0-18.0)
[2018-07-09 12:20] LABS: ACTIVATED CLOTTING TIME 116 SEC (101-148)
[2018-07-09] MEDS ORDERED: acetaminophen 325mg tablet PO PRN (12:35)
[2018-07-09] MEDS ORDERED: sodium phosphate inj. 30 MMOL in dextrose 5%-water 250 ML IV PRN (12:35)
[2018-07-09] MEDS ORDERED: nitroGLYCERIN-Tridil 50MG/D5W 250 ML IV PRN (12:35)
[2018-07-09] MEDS ORDERED: pantoprazole 40 MG vial IV ONE (12:35)
[2018-07-09] MEDS ORDERED: dextrose 50%-water 50ml dispensing syringe IV PRN (12:35)
[2018-07-09] MEDS ORDERED: niCARDipine-NS 40mg/200ml IVPB 200 ML IV PRN (12:35)
[2018-07-09] MEDS ORDERED: morphine 4 MG/ML inj SYRINge IV PRN (12:35)
[2018-07-09] MEDS ORDERED: HYDROcodone/acetaminophen 10/325mg tab PO PRN (12:35)
[2018-07-09] MEDS ORDERED: magnesium 4gm in 100ml NS 100 ML IV PRN (12:35)
[2018-07-09] MEDS ORDERED: sodium chloride 0.45% 1,000 ML IV SCH (12:35)
[2018-07-09] MEDS ORDERED: Neutra Phos packet PO PRN (12:35)
[2018-07-09] MEDS ORDERED: magnesium hydroxide 30ml (MOM) UD suspension PO PRN (12:35)
[2018-07-09] MEDS ORDERED: normal saline 250ml IV soln 250 ML IV PRN (12:35)
[2018-07-09] MEDS: insulin regular, human inj. 100 UNITS in normal saline 100ml IV soln 100 ML IV SCH ×2 (12:35)
[2018-07-09] MEDS ORDERED: ondansetron/PF 4mg/2ml inj IV PRN (12:35)
[2018-07-09] MEDS ORDERED: DOPamine 400mg/D5W 250ml 250 ML IV PRN ×2 (12:35→12:43)
[2018-07-09] MEDS ORDERED: metoclopramide 5 mg/ml inj IV PRN (12:35)
[2018-07-09] MEDS ORDERED: sodium phosphate inj. 15 MMOL in dextrose 5%-water 150 ML IV PRN (12:35)
[2018-07-09] MEDS ORDERED: potassium Cl 20mEq/100mL bag 100 ML IV PRN ×2 (12:35)
[2018-07-09 12:56] LABS: ABG BASE EXCESS -0.5 mmol/L (-2.0-3.0); ABG HCO3 25.1 mmol/L (22.0-26.0); ABG OXYGEN SATURATION 97.1 % (95-98); ABG PCO2 (T) 45.7 mmHg (35.0-48.0); ABG PO2 (T) 108.8 mmHg (83-108); FCOHb 0.3 % (0.5-1.5); FMetHb 0.3 % (0.3-1.12); FO2Hb 96.5 % (94-100); MINUTE VOLUME 9 L/min; PATIENT TEMPERATURE 37.3; PEEP 5 cm H2O; RESPIRATORY RATE 12 b/min; RESPIRATORY RATE (OBSERVED) 12 b/min; TIDAL VOLUME 600 mL; TOTAL HEMOGLOBIN 13.2 G/dl (14.0-18.0)
[2018-07-09] MEDS: insulin Lispro (HumaLOG) vial - multi-dose SQ SCH ×2 (13:00→18:00)
[2018-07-09] MEDS ORDERED: insulin Lispro (HumaLOG) vial - multi-dose SQ SCH (13:00)
[2018-07-09 13:10] LABS: BASOPHILS % (AUTO) 0 % (0-1); EOSINOPHILS # (AUTO) 0.1 X10'3 (0-0.9); EOSINOPHILS % (AUTO) 1.4 % (0-6); HEMATOCRIT 36.9 % (42.0-52.0); HEMOGLOBIN 12.6 g/dl (14.0-17.9); LYMPHOCYTES # (AUTO) 0.3 X10'3 (1.1-4.8); LYMPHOCYTES % (AUTO) 3.7 % (21-51); MEAN CORPUSCULAR VOLUME 85.3 FL (78-98); MEAN PLATELET VOLUME 8.9 FL (7.4-10.4); MONOCYTES # (AUTO) 0.3 X10'3 (0-0.9); MONOCYTES % (AUTO) 4.2 % (2-12); NEUTROPHILS # (AUTO) 6.6 X10'3 (1.8-7.7); NEUTROPHILS % (AUTO) 90.7 % (42-75); PLATELET COUNT 102 X10'3 (140-440); RED BLOOD COUNT 4.33 X10'6 (4.70-6.10); RED CELL DISTRIBUTION WIDTH 13.3 % (11.5-14.5); WHITE BLOOD COUNT 7.3 X10'3 (4.5-11.0)
[2018-07-09 13:21] LABS: ANION GAP 7 (8-16); BLOOD UREA NITROGEN 16 MG/DL (7-18); BUN/CREATININE RATIO 13.6 (5.4-32.0); CALCIUM 9.3 MG/DL (8.5-10.1); CHLORIDE 110 MMOL/L (99-107); CREATININE 1.18 MG/DL (0.60-1.10); GLUCOSE 126 MG/DL (70-104); MAGNESIUM 3.2 MG/DL (1.5-2.4); PHOSPHORUS 3.7 MG/DL (2.3-4.5); POTASSIUM 3.9 MMOL/L (3.5-5.1); SODIUM 143 MMOL/L (135-145); TOTAL CARBON DIOXIDE 26.4 MMOL/L (24-32); eGFR 61 ML/MIN
[2018-07-09 13:22] LABS: ALANINE AMINOTRANSFERASE 73 U/L (12-78); ALBUMIN/GLOBULIN RATIO 1.4 (1.1-1.5); ALKALINE PHOSPHATASE 28 IU/L (46-116); ASPARTATE AMINO TRANSFERASE 103 U/L (10-37); BILIRUBIN,TOTAL 0.7 MG/DL (0.1-1.0); TOTAL PROTEIN 5.1 G/DL (6.4-8.2)
[2018-07-09] MEDS: albumin (Human) 5% 250ml 250 ML IV PRN ×2 (13:29→14:52)
[2018-07-09 13:45] LABS: INR 1.2 INR; PARTIAL THROMBOPLASTIN TIME 30 SECONDS (22-32); PROTHROMBIN TIME 11.9 SECONDS (9.0-12.0)
[2018-07-09] MEDS ORDERED: NORepinephrine 8mg/ 250ml NS 250 ML IV ONE (14:24)
[2018-07-09] MEDS: morphine 4 MG/ML inj SYRINge IV PRN ×3 (14:53→18:40)
[2018-07-09] MEDS: ceFAZolin 1GM/D5W- ADD-VANTAGE 50 ML IV SCH ×2 (16:37→23:25)
[2018-07-09 16:46] LABS: ABG BASE EXCESS -4.6 mmol/L (-2.0-3.0); ABG HCO3 21.4 mmol/L (22.0-26.0); ABG OXYGEN SATURATION 96.3 % (95-98); ABG PCO2 (T) 43.3 mmHg (35.0-48.0); ABG PH (T) 7.313 (7.350-7.450); FCOHb 0.3 % (0.5-1.5); FMetHb 0.1 % (0.3-1.12); FO2Hb 95.9 % (94-100); MINUTE VOLUME 14 L/min; PATIENT TEMPERATURE 37.3; PEEP 5 cm H2O; TOTAL HEMOGLOBIN 12.1 G/dl (14.0-18.0)
[2018-07-09 18:11] LABS: BASOPHILS % (AUTO) 0 % (0-1); EOSINOPHILS # (AUTO) 0.1 X10'3 (0-0.9); EOSINOPHILS % (AUTO) 0.8 % (0-6); HEMATOCRIT 34.8 % (42.0-52.0); HEMOGLOBIN 11.7 g/dl (14.0-17.9); LYMPHOCYTES # (AUTO) 0.2 X10'3 (1.1-4.8); LYMPHOCYTES % (AUTO) 2.5 % (21-51); MEAN CORPUSCULAR HEMOGLOBIN 28.8 PG (27.0-31.0); MEAN CORPUSCULAR HGB CONC 33.6 % (33.0-36.5); MEAN CORPUSCULAR VOLUME 85.7 FL (78-98); MEAN PLATELET VOLUME 9.8 FL (7.4-10.4); MONOCYTES # (AUTO) 0.3 X10'3 (0-0.9); MONOCYTES % (AUTO) 3.4 % (2-12); NEUTROPHILS # (AUTO) 8.9 X10'3 (1.8-7.7); NEUTROPHILS % (AUTO) 93.3 % (42-75); PLATELET COUNT 117 X10'3 (140-440); RED BLOOD COUNT 4.06 X10'6 (4.70-6.10); WHITE BLOOD COUNT 9.6 X10'3 (4.5-11.0)
[2018-07-09 18:26] LABS: ALBUMIN 3.7 G/DL (3.4-5.0); ANION GAP 15 (8-16); BLOOD UREA NITROGEN 18 MG/DL (7-18); BUN/CREATININE RATIO 11.8 (5.4-32.0); CALCIUM 8.7 MG/DL (8.5-10.1); CHLORIDE 108 MMOL/L (99-107); CREATININE 1.52 MG/DL (0.60-1.10); GLUCOSE 209 MG/DL (70-104); MAGNESIUM 2.5 MG/DL (1.5-2.4); POTASSIUM 4.2 MMOL/L (3.5-5.1); SODIUM 144 MMOL/L (135-145); TOTAL CARBON DIOXIDE 21.4 MMOL/L (24-32); eGFR 45 ML/MIN
[2018-07-09] MEDS: potassium Cl 20mEq/100mL bag 100 ML IV PRN (19:39)
[2018-07-09] MEDS: docusate sod 100mg capsule PO SCH (20:00)
[2018-07-09] MEDS: vancomycin/NS 1 GM ADD-VANTAGE 250 ML IV SCH (20:21)
[2018-07-09] MEDS: mupirocin 2% ointment 22GM NS SCH (20:22)
[2018-07-10] VITALS (23 sets, daily range): BP systolic 100–141; BP diastolic 36–71
[2018-07-10] MEDS: morphine 4 MG/ML inj SYRINge IV PRN ×3 (00:39→20:46)
[2018-07-10 02:34] LABS: ALANINE AMINOTRANSFERASE 59 U/L (12-78); ALBUMIN 3.3 G/DL (3.4-5.0); ALBUMIN/GLOBULIN RATIO 1.6 (1.1-1.5); ALKALINE PHOSPHATASE 30 IU/L (46-116); ANION GAP 12 (8-16); ASPARTATE AMINO TRANSFERASE 90 U/L (10-37); BILIRUBIN,TOTAL 0.6 MG/DL (0.1-1.0); BLOOD UREA NITROGEN 18 MG/DL (7-18); BUN/CREATININE RATIO 16.1 (5.4-32.0); CALCIUM 8.5 MG/DL (8.5-10.1); CHLORIDE 109 MMOL/L (99-107); CREATININE 1.12 MG/DL (0.60-1.10); GLUCOSE 144 MG/DL (70-104); MAGNESIUM 2.1 MG/DL (1.5-2.4); PHOSPHORUS 3.7 MG/DL (2.3-4.5); POTASSIUM 4.5 MMOL/L (3.5-5.1); SODIUM 144 MMOL/L (135-145); TOTAL CARBON DIOXIDE 23.2 MMOL/L (24-32); TOTAL PROTEIN 5.4 G/DL (6.4-8.2); eGFR 64 ML/MIN
[2018-07-10 02:39] LABS: HEMATOCRIT 30.5 % (42.0-52.0); MONOCYTES # (AUTO) 0.6 X10'3 (0-0.9)
[2018-07-10 02:40] LABS: INR 1.1 INR; PARTIAL THROMBOPLASTIN TIME 31 SECONDS (22-32); PROTHROMBIN TIME 11.5 SECONDS (9.0-12.0)
[2018-07-10] MEDS: magnesium 1gm/100ml D5W IVPB 100 ML IV PRN ×2 (02:49→02:51)
[2018-07-10 03:19] LABS: MEAN PLATELET VOLUME 10.7 FL (7.4-10.4); MONOCYTES % (AUTO) 6.6 % (2-12); RED CELL DISTRIBUTION WIDTH 13.3 % (11.5-14.5)
[2018-07-10 03:22] LABS: BASOPHILS % (AUTO) 0.1 % (0-1); EOSINOPHILS % (AUTO) 0 % (0-6); HEMOGLOBIN 10.4 g/dl (14.0-17.9); LYMPHOCYTES # (AUTO) 0.3 X10'3 (1.1-4.8); LYMPHOCYTES % (AUTO) 2.8 % (21-51); MEAN CORPUSCULAR HEMOGLOBIN 28.9 PG (27.0-31.0); MEAN CORPUSCULAR HGB CONC 33.9 % (33.0-36.5); MEAN CORPUSCULAR VOLUME 85.2 FL (78-98); NEUTROPHILS # (AUTO) 8.1 X10'3 (1.8-7.7); NEUTROPHILS % (AUTO) 90.5 % (42-75); RED BLOOD COUNT 3.58 X10'6 (4.70-6.10)
[2018-07-10 03:26] LABS: PLATELET COUNT 92 X10'3 (140-440)
[2018-07-10] MEDS: HYDROcodone/acetaminophen 10/325mg tab PO PRN ×3 (04:29→20:46)
[2018-07-10] MEDS: mupirocin 2% ointment 22GM NS SCH ×3 (07:34→20:00)
[2018-07-10] MEDS: ceFAZolin 1GM/D5W- ADD-VANTAGE 50 ML IV SCH ×3 (07:34→23:58)
[2018-07-10] MEDS: atorvastatin 10mg tablet PO SCH (07:36)
[2018-07-10] MEDS: metoprolol tartrate 12.5mg (1/2 tablet) PO SCH ×2 (07:36→19:46)
[2018-07-10] MEDS: docusate sod 100mg capsule PO SCH ×2 (07:37→19:47)
[2018-07-10] MEDS: cyanocobalamin 500mcg tablet PO SCH (07:37)
[2018-07-10] MEDS ORDERED: aspirin 325mg tablet, delayed-release (Ecotrin) PO SCH (08:00)
[2018-07-10] MEDS: aspirin 81mg tablet.DR PO SCH (08:00)
[2018-07-10] MEDS: vancomycin/NS 1 GM ADD-VANTAGE 250 ML IV SCH ×2 (08:22→19:47)
[2018-07-10] MEDS: insulin Lispro (HumaLOG) vial - multi-dose SQ SCH ×3 (09:32→19:20)
[2018-07-10] MEDS: insulin regular, human inj. 100 UNITS in normal saline 100ml IV soln 100 ML IV SCH ×2 (12:35)
[2018-07-11] VITALS (16 sets, daily range): BP systolic 96–142; BP diastolic 49–81
[2018-07-11] MEDS: HYDROcodone/acetaminophen 10/325mg tab PO PRN (00:40)
[2018-07-11 02:01] LABS: BASOPHILS % (AUTO) 0.1 % (0-1); EOSINOPHILS % (AUTO) 0 % (0-6); HEMATOCRIT 27.3 % (42.0-52.0); HEMOGLOBIN 9.2 g/dl (14.0-17.9); LYMPHOCYTES # (AUTO) 0.5 X10'3 (1.1-4.8); LYMPHOCYTES % (AUTO) 4.5 % (21-51); MEAN CORPUSCULAR HGB CONC 33.6 % (33.0-36.5); MEAN CORPUSCULAR VOLUME 86.4 FL (78-98); MEAN PLATELET VOLUME 10.9 FL (7.4-10.4); MONOCYTES # (AUTO) 0.8 X10'3 (0-0.9); MONOCYTES % (AUTO) 7.8 % (2-12); NEUTROPHILS % (AUTO) 87.6 % (42-75); PLATELET COUNT 89 X10'3 (140-440); RED BLOOD COUNT 3.16 X10'6 (4.70-6.10); RED CELL DISTRIBUTION WIDTH 13.6 % (11.5-14.5); WHITE BLOOD COUNT 10.3 X10'3 (4.5-11.0)
[2018-07-11 03:00] LABS: ALBUMIN 2.9 G/DL (3.4-5.0); ANION GAP 10 (8-16); BLOOD UREA NITROGEN 21 MG/DL (7-18); BUN/CREATININE RATIO 19.6 (5.4-32.0); CALCIUM 7.9 MG/DL (8.5-10.1); CHLORIDE 105 MMOL/L (99-107); CREATININE 1.07 MG/DL (0.60-1.10); GLUCOSE 133 MG/DL (70-104); PHOSPHORUS 2.9 MG/DL (2.3-4.5); SODIUM 140 MMOL/L (135-145); TOTAL CARBON DIOXIDE 25.3 MMOL/L (24-32); eGFR 68 ML/MIN
[2018-07-11 03:07] LABS: POTASSIUM 4.4 MMOL/L (3.5-5.1)
[2018-07-11] MEDS: potassium Cl 20mEq/100mL bag 100 ML IV PRN (03:40)
[2018-07-11] MEDS ORDERED: furosemide 40mg/4ml inj IV ONE (06:35)
[2018-07-11] MEDS: pantoprazole 40mg Tablet.DR PO SCH (07:01)
[2018-07-11] MEDS ORDERED: magnesium Cl slow-release 64mg tablet PO PRN (07:25)
[2018-07-11] MEDS ORDERED: potassium Cl 40MEQ/NS 500ml 500 ML IV PRN ×2 (07:25)
[2018-07-11] MEDS ORDERED: magnesium 4gm in 100ml NS 100 ML IV PRN (07:25)
[2018-07-11] MEDS ORDERED: magnesium 1gm/100ml D5W IVPB 100 ML IV PRN (07:25)
[2018-07-11] MEDS: potassium Cl 20 mEq SR tablet PO SCH ×2 (08:00→20:24)
[2018-07-11] MEDS: magnesium Cl slow-release 64mg tablet PO SCH ×2 (08:00→20:24)
[2018-07-11] MEDS: K and/or MAG REPLACEMENT MC SCH (08:12)
[2018-07-11] MEDS: mupirocin 2% ointment 22GM NS SCH (08:13)
[2018-07-11] MEDS: atorvastatin 10mg tablet PO SCH (08:14)
[2018-07-11] MEDS: cyanocobalamin 500mcg tablet PO SCH (08:14)
[2018-07-11] MEDS: aspirin 81mg tablet.DR PO SCH (08:14)
[2018-07-11] MEDS: metoprolol tartrate 12.5mg (1/2 tablet) PO SCH ×2 (08:15→20:24)
[2018-07-11] MEDS: insulin Lispro (HumaLOG) vial - multi-dose SQ SCH (09:00)
[2018-07-12] VITALS (7 sets, daily range): BP systolic 100–116; BP diastolic 52–71
[2018-07-12 05:38] LABS: K (ABG) 6.3 mmol/L (3.3-5.1)
[2018-07-12 05:41] LABS: BASOPHILS % (AUTO) 0 % (0-1); EOSINOPHILS % (AUTO) 0 % (0-6); HEMATOCRIT 27.4 % (42.0-52.0); HEMOGLOBIN 9.4 g/dl (14.0-17.9); LYMPHOCYTES # (AUTO) 0.5 X10'3 (1.1-4.8); LYMPHOCYTES % (AUTO) 5.9 % (21-51); MEAN CORPUSCULAR HEMOGLOBIN 29.3 PG (27.0-31.0); MEAN CORPUSCULAR HGB CONC 34.4 % (33.0-36.5); MEAN CORPUSCULAR VOLUME 85.3 FL (78-98); MEAN PLATELET VOLUME 10.2 FL (7.4-10.4); MONOCYTES # (AUTO) 0.8 X10'3 (0-0.9); MONOCYTES % (AUTO) 9.1 % (2-12); PLATELET COUNT 91 X10'3 (140-440); RED BLOOD COUNT 3.22 X10'6 (4.70-6.10); RED CELL DISTRIBUTION WIDTH 13.4 % (11.5-14.5); WHITE BLOOD COUNT 8.3 X10'3 (4.5-11.0)
[2018-07-12 05:53] LABS: ANION GAP 9 (8-16); BLOOD UREA NITROGEN 20 MG/DL (7-18); BUN/CREATININE RATIO 17.9 (5.4-32.0); CALCIUM 8.4 MG/DL (8.5-10.1); CHLORIDE 104 MMOL/L (99-107); CREATININE 1.12 MG/DL (0.60-1.10); GLUCOSE 103 MG/DL (70-104); MAGNESIUM 2.1 MG/DL (1.5-2.4); POTASSIUM 3.4 MMOL/L (3.5-5.1); SODIUM 140 MMOL/L (135-145); TOTAL CARBON DIOXIDE 27.4 MMOL/L (24-32); eGFR 64 ML/MIN
[2018-07-12] MEDS: pantoprazole 40mg Tablet.DR PO SCH (06:50)
[2018-07-12] MEDS: HYDROcodone/acetaminophen 10/325mg tab PO PRN (06:51)
[2018-07-12] MEDS ORDERED: magnesium citrate 296ml oral solution PO ONE (07:00)
[2018-07-12] MEDS: K and/or MAG REPLACEMENT MC SCH (08:00)
[2018-07-12] MEDS: metoprolol tartrate 12.5mg (1/2 tablet) PO SCH ×2 (08:00→20:36)
[2018-07-12] MEDS: atorvastatin 10mg tablet PO SCH (08:02)
[2018-07-12] MEDS: cyanocobalamin 500mcg tablet PO SCH (08:03)
[2018-07-12] MEDS: magnesium Cl slow-release 64mg tablet PO SCH ×2 (08:04→20:36)
[2018-07-12] MEDS: potassium Cl 20 mEq SR tablet PO PRN ×2 (08:04→13:28)
[2018-07-12] MEDS: aspirin 81mg tablet.DR PO SCH (08:04)
[2018-07-12] MEDS: potassium Cl 20 mEq SR tablet PO SCH ×2 (08:04→20:36)
[2018-07-12] MEDS: lactose-reduced food (Ensure High Protein) 237ml bottle PO SCH (18:00)
[2018-07-12] MEDS ORDERED: amiodarone 150mg/dext, iso-os 100 ML IV ONE (20:10)
[2018-07-12] MEDS: amiodarone/D5 360MG/200ML BAG 200 ML IV SCH (21:21)
[2018-07-13] VITALS (12 sets, daily range): BP systolic 93–134; BP diastolic 59–104
[2018-07-13] MEDS: amiodarone/D5 360MG/200ML BAG 200 ML IV SCH ×4 (02:14→20:26)
[2018-07-13 06:30] LABS: BASOPHILS % (AUTO) 0 % (0-1); EOSINOPHILS % (AUTO) 0.3 % (0-6); HEMATOCRIT 28.1 % (42.0-52.0); HEMOGLOBIN 9.4 g/dl (14.0-17.9); LYMPHOCYTES # (AUTO) 0.5 X10'3 (1.1-4.8); LYMPHOCYTES % (AUTO) 9.6 % (21-51); MEAN CORPUSCULAR HGB CONC 33.6 % (33.0-36.5); MEAN CORPUSCULAR VOLUME 86.2 FL (78-98); MEAN PLATELET VOLUME 10.8 FL (7.4-10.4); MONOCYTES # (AUTO) 0.5 X10'3 (0-0.9); MONOCYTES % (AUTO) 9.5 % (2-12); NEUTROPHILS # (AUTO) 4.2 X10'3 (1.8-7.7); NEUTROPHILS % (AUTO) 80.6 % (42-75); PLATELET COUNT 120 X10'3 (140-440); RED BLOOD COUNT 3.26 X10'6 (4.70-6.10); RED CELL DISTRIBUTION WIDTH 13.2 % (11.5-14.5); WHITE BLOOD COUNT 5.2 X10'3 (4.5-11.0)
[2018-07-13 06:41] LABS: ALBUMIN 2.9 G/DL (3.4-5.0); ANION GAP 9 (8-16); BLOOD UREA NITROGEN 21 MG/DL (7-18); CALCIUM 8.5 MG/DL (8.5-10.1); CHLORIDE 107 MMOL/L (99-107); CREATININE 1.05 MG/DL (0.60-1.10); GLUCOSE 99 MG/DL (70-104); MAGNESIUM 1.9 MG/DL (1.5-2.4); POTASSIUM 3.7 MMOL/L (3.5-5.1); SODIUM 141 MMOL/L (135-145); TOTAL CARBON DIOXIDE 25.3 MMOL/L (24-32); eGFR 69 ML/MIN
[2018-07-13] MEDS: lactose-reduced food (Ensure High Protein) 237ml bottle PO SCH ×3 (08:00→18:00)
[2018-07-13] MEDS: potassium Cl 20 mEq SR tablet PO SCH ×2 (08:09→19:59)
[2018-07-13] MEDS: cyanocobalamin 500mcg tablet PO SCH (08:09)
[2018-07-13] MEDS: potassium Cl 20 mEq SR tablet PO PRN ×2 (08:09→17:52)
[2018-07-13] MEDS: aspirin 81mg tablet.DR PO SCH (08:10)
[2018-07-13] MEDS: pantoprazole 40mg Tablet.DR PO SCH (08:10)
[2018-07-13] MEDS: magnesium Cl slow-release 64mg tablet PO SCH ×2 (08:10→19:59)
[2018-07-13] MEDS: atorvastatin 10mg tablet PO SCH (08:10)
[2018-07-13] MEDS: metoprolol tartrate 12.5mg (1/2 tablet) PO SCH ×2 (08:10→20:05)
[2018-07-13] MEDS: K and/or MAG REPLACEMENT MC SCH (08:21)
[2018-07-13] MEDS ORDERED: furosemide 40mg/4ml inj IV ONE (09:10)
[2018-07-14] VITALS (16 sets, daily range): BP systolic 95–144; BP diastolic 51–89
[2018-07-14] MEDS: amiodarone/D5 360MG/200ML BAG 200 ML IV SCH (02:30)
[2018-07-14 07:01] LABS: BASOPHILS % (AUTO) 0.4 % (0-1); EOSINOPHILS # (AUTO) 0.1 X10'3 (0-0.9); EOSINOPHILS % (AUTO) 1.6 % (0-6); HEMATOCRIT 27.9 % (42.0-52.0); HEMOGLOBIN 9.4 g/dl (14.0-17.9); LYMPHOCYTES # (AUTO) 0.5 X10'3 (1.1-4.8); LYMPHOCYTES % (AUTO) 10.1 % (21-51); MEAN CORPUSCULAR HEMOGLOBIN 28.9 PG (27.0-31.0); MEAN CORPUSCULAR HGB CONC 33.8 % (33.0-36.5); MEAN CORPUSCULAR VOLUME 85.4 FL (78-98); MEAN PLATELET VOLUME 10.5 FL (7.4-10.4); MONOCYTES # (AUTO) 0.5 X10'3 (0-0.9); MONOCYTES % (AUTO) 9.7 % (2-12); NEUTROPHILS % (AUTO) 78.2 % (42-75); PLATELET COUNT 137 X10'3 (140-440); RED BLOOD COUNT 3.27 X10'6 (4.70-6.10); RED CELL DISTRIBUTION WIDTH 13.6 % (11.5-14.5); WHITE BLOOD COUNT 5.1 X10'3 (4.5-11.0)
[2018-07-14 07:03] LABS: ALBUMIN 2.7 G/DL (3.4-5.0); ANION GAP 9 (8-16); BLOOD UREA NITROGEN 22 MG/DL (7-18); CALCIUM 8.3 MG/DL (8.5-10.1); CHLORIDE 107 MMOL/L (99-107); CREATININE 1.05 MG/DL (0.60-1.10); GLUCOSE 95 MG/DL (70-104); MAGNESIUM 1.9 MG/DL (1.5-2.4); POTASSIUM 3.9 MMOL/L (3.5-5.1); SODIUM 141 MMOL/L (135-145); TOTAL CARBON DIOXIDE 24.7 MMOL/L (24-32); eGFR 69 ML/MIN
[2018-07-14 07:31] LABS: LARGE PLATELETS FEW; PLATELET ESTIMATE DECREASED
[2018-07-14 07:32] LABS: POLYCHROMASIA 1+
[2018-07-14] MEDS: lactose-reduced food (Ensure High Protein) 237ml bottle PO SCH ×3 (08:00→18:00)
[2018-07-14] MEDS: K and/or MAG REPLACEMENT MC SCH (08:00)
[2018-07-14] MEDS: potassium Cl 20 mEq SR tablet PO SCH ×2 (08:00→20:40)
[2018-07-14] MEDS ORDERED: MIDAZolam 5mg/ml 2ml vial IV PRN (08:40)
[2018-07-14] MEDS ORDERED: morphine 4 MG/ML inj SYRINge IV PRN (08:40)
[2018-07-14] MEDS: metoprolol tartrate 12.5mg (1/2 tablet) PO SCH ×2 (09:01→20:00)
[2018-07-14] MEDS ORDERED: MIDAZolam 1mg/ml 10ml vial IV PRN (09:57)
[2018-07-14] MEDS ORDERED: potassium Cl 20 mEq SR tablet PO STA (09:57)
[2018-07-14] MEDS ORDERED: magnesium Cl slow-release 64mg tablet PO ONE (10:00)
[2018-07-14] MEDS: pantoprazole 40mg Tablet.DR PO SCH (13:51)
[2018-07-14] MEDS: aspirin 81mg tablet.DR PO SCH (13:52)
[2018-07-14] MEDS: atorvastatin 10mg tablet PO SCH (13:52)
[2018-07-14] MEDS: magnesium Cl slow-release 64mg tablet PO SCH ×2 (13:52→20:40)
[2018-07-14] MEDS: cyanocobalamin 500mcg tablet PO SCH (13:52)
[2018-07-15 02:00] VITALS: BP 102/88
[2018-07-15 06:21] LABS: ALBUMIN 2.7 G/DL (3.4-5.0); ANION GAP 12 (8-16); BLOOD UREA NITROGEN 20 MG/DL (7-18); BUN/CREATININE RATIO 18.3 (5.4-32.0); CALCIUM 8.4 MG/DL (8.5-10.1); CHLORIDE 104 MMOL/L (99-107); CREATININE 1.09 MG/DL (0.60-1.10); GLUCOSE 99 MG/DL (70-104); MAGNESIUM 1.9 MG/DL (1.5-2.4); POTASSIUM 4.2 MMOL/L (3.5-5.1); SODIUM 138 MMOL/L (135-145); TOTAL CARBON DIOXIDE 22.3 MMOL/L (24-32); eGFR 66 ML/MIN
[2018-07-15 07:00] VITALS: BP 107/62
[2018-07-15] MEDS: pantoprazole 40mg Tablet.DR PO SCH (07:13)
[2018-07-15] MEDS: atorvastatin 10mg tablet PO SCH (07:13)
[2018-07-15] MEDS: potassium Cl 20 mEq SR tablet PO SCH ×2 (07:14→19:19)
[2018-07-15] MEDS: magnesium Cl slow-release 64mg tablet PO SCH ×2 (07:14→20:23)
[2018-07-15] MEDS: cyanocobalamin 500mcg tablet PO SCH (07:14)
[2018-07-15] MEDS: aspirin 81mg tablet.DR PO SCH (07:14)
[2018-07-15] MEDS: metoprolol tartrate 12.5mg (1/2 tablet) PO SCH ×2 (07:17→20:24)
[2018-07-15] MEDS: lactose-reduced food (Ensure High Protein) 237ml bottle PO SCH ×3 (07:28→18:00)
[2018-07-15] MEDS: K and/or MAG REPLACEMENT MC SCH (08:00)
[2018-07-15] MEDS: amiodarone 200mg tablet PO SCH ×2 (10:13→20:24)
[2018-07-15 11:00] VITALS: BP 109/66
[2018-07-15 15:00] VITALS: BP 109/61
[2018-07-15 18:00] VITALS: BP 108/77
[2018-07-15 23:00] VITALS: BP 102/70
[2018-07-16 02:57] VITALS: BP 112/68
[2018-07-16 06:00] VITALS: BP 107/63
[2018-07-16 06:10] LABS: ALBUMIN 2.7 G/DL (3.4-5.0); ANION GAP 10 (8-16); BLOOD UREA NITROGEN 20 MG/DL (7-18); BUN/CREATININE RATIO 17.4 (5.4-32.0); CALCIUM 8.4 MG/DL (8.5-10.1); CHLORIDE 104 MMOL/L (99-107); CREATININE 1.15 MG/DL (0.60-1.10); GLUCOSE 103 MG/DL (70-104); MAGNESIUM 1.9 MG/DL (1.5-2.4); POTASSIUM 4.1 MMOL/L (3.5-5.1); SODIUM 139 MMOL/L (135-145); TOTAL CARBON DIOXIDE 25.3 MMOL/L (24-32); eGFR 62 ML/MIN
[2018-07-16] MEDS ORDERED: HYDR-3972 PO (07:29)
[2018-07-16] MEDS ORDERED: METO25TA6 PO (07:29)
[2018-07-16] MEDS ORDERED: AMIO200T40 PO (07:29)
[2018-07-16] MEDS: potassium Cl 20 mEq SR tablet PO SCH (07:51)
[2018-07-16] MEDS: lactose-reduced food (Ensure High Protein) 237ml bottle PO SCH (07:51)
[2018-07-16] MEDS: pantoprazole 40mg Tablet.DR PO SCH (07:55)
[2018-07-16] MEDS: aspirin 81mg tablet.DR PO SCH (07:57)
[2018-07-16] MEDS: amiodarone 200mg tablet PO SCH (07:57)
[2018-07-16] MEDS: atorvastatin 10mg tablet PO SCH (07:58)
[2018-07-16] MEDS: metoprolol tartrate 12.5mg (1/2 tablet) PO SCH (08:00)
[2018-07-16] MEDS: cyanocobalamin 500mcg tablet PO SCH (08:00)
[2018-07-16] MEDS: K and/or MAG REPLACEMENT MC SCH (08:00)
[2018-07-16] MEDS: magnesium Cl slow-release 64mg tablet PO SCH (08:00)
[2018-07-16 11:00] VITALS: BP 96/66
== END 2018-07-16 13:40 | DRG 216 ==
LOC: ER 04:56 → ED HOLD 07:49 → EDBEDREQ 09:01 → PCU 3S 10:55 → PACU 07-09 06:30 → ICU 2S 07-09 12:33 → PCU 3S 07-11 12:00
PROVIDERS: ADMIT Internal Medicine; ATTEND Internal Medicine
PROC: 4A02XM4 Measurement of Cardiac Total Activity, External Approach (ICD-10-PCS; 2018-07-02)
PROC: 3E033HZ Introduction of Radioactive Substance into Peripheral Vein, Percutaneous Approach (ICD-10-PCS; 2018-07-02)
PROC: 5A2204Z Restoration of Cardiac Rhythm, Single (ICD-10-PCS; 2018-07-02)
PROC: 4A023N7 Measurement of Cardiac Sampling and Pressure, Left Heart, Percutaneous Approach (ICD-10-PCS; 2018-07-03)
PROC: B2111ZZ Fluoroscopy of Multiple Coronary Arteries using Low Osmolar Contrast (ICD-10-PCS; 2018-07-03)
PROC: B3101ZZ Fluoroscopy of Thoracic Aorta using Low Osmolar Contrast (ICD-10-PCS; 2018-07-03)
PROC: B2151ZZ Fluoroscopy of Left Heart using Low Osmolar Contrast (ICD-10-PCS; 2018-07-03)
PROC: B42H1ZZ Computerized Tomography (CT Scan) of Bilateral Lower Extremity Arteries using Low Osmolar Contrast (ICD-10-PCS; 2018-07-03)
PROC: B31N1ZZ Fluoroscopy of Other Upper Arteries using Low Osmolar Contrast (ICD-10-PCS; 2018-07-03)
PROC: B3201ZZ Computerized Tomography (CT Scan) of Thoracic Aorta using Low Osmolar Contrast (ICD-10-PCS; 2018-07-07)
PROC: 02RF08Z Replacement of Aortic Valve with Zooplastic Tissue, Open Approach (ICD-10-PCS; 2018-07-09)
PROC: 021309W Bypass Coronary Artery, Four or More Arteries from Aorta with Autologous Venous Tissue, Open Approach (ICD-10-PCS; 2018-07-09)
PROC: 06BP4ZZ Excision of Right Saphenous Vein, Percutaneous Endoscopic Approach (ICD-10-PCS; 2018-07-09)
PROC: 5A1221Z Performance of Cardiac Output, Continuous (ICD-10-PCS; 2018-07-09)
PROC: B24BZZ4 Ultrasonography of Heart with Aorta, Transesophageal (ICD-10-PCS; 2018-07-09)
PROC: 02L70CK Occlusion of Left Atrial Appendage with Extraluminal Device, Open Approach (ICD-10-PCS; 2018-07-09)
PROC: 02HV33Z Insertion of Infusion Device into Superior Vena Cava, Percutaneous Approach (ICD-10-PCS; 2018-07-09)
PROC: 02HP32Z Insertion of Monitoring Device into Pulmonary Trunk, Percutaneous Approach (ICD-10-PCS; 2018-07-09)
PROC: 02100Z9 Bypass Coronary Artery, One Artery from Left Internal Mammary, Open Approach (ICD-10-PCS; principal; 2018-07-09 06:39)
PROC: 5A2204Z Restoration of Cardiac Rhythm, Single (ICD-10-PCS; 2018-07-13)
DX: I21.4 Non-ST elevation (NSTEMI) myocardial infarction (principal); I50.31 Acute diastolic (congestive) heart failure; I48.0 Paroxysmal atrial fibrillation; E78.5 Hyperlipidemia, unspecified; E78.00 Pure hypercholesterolemia, unspecified; I25.110 Atherosclerotic heart disease of native coronary artery with unstable angina pectoris; I35.2 Nonrheumatic aortic (valve) stenosis with insufficiency; Z60.2 Problems related to living alone; Z89.021 Acquired absence of right finger(s); Z79.899 Other long term (current) drug therapy
CPT/HCPCS: 0232T; 92960; 93306; 93312; 93325; 93459; 93567; 96374; 96375; 99291; 36415; 36600; 71045; 71046; 71275; 78452; 80048; 80053; 80061; 81001; 82330; 82435; 82803; 82947; 82948; 83036; 83735; 84100; 84132; 84295; 84439; 84443; 84484; 85018; 85025; 85347; 85379; 85384; 85610; 85730; 86885; 86900; 86901; 86920; 87070; 88300; 93005; 93017; 93880; 93971; 94002; 94010; 94668; 94760; 97116; 97530; 99152; A4620; A6257; A6258; A6402; A6449; A7000; A7048; A9500; C1769; C9113; G0378; J0280; J0282; J0690; J1265; J1644; J1650; J1815; J1940; J2001; J2060; J2150; J2250; J2270; J2370; J2405; J2440; J2704; J2720; J2930; J3010; J3370; J3420; J3475; J3480; J3490; J7030; J7120; P9045; P9047; Q9967

== ENCOUNTER 2019-04-22 00:59 | Inpatient (IN) | payer MEDICARE, OTHER ==
[~2019-04-22] VITALS: Ht 182.9 cm; Wt 90.7 kg
[~2019-04-22 00:59] MED LIST: AMIO200T61 PO; ASPI-611 PO; CHOL10002 PO; CYAN100019 PO; FERR325T28 PO; HYDR-3972 PO; METO25TA6 PO; SIMV20TA5 PO
[2019-04-22] MEDS ORDERED: normal saline 1000ml 1,000 ML IV ONE (01:07)
[2019-04-22] MEDS ORDERED: morphine 2 MG/ML inj. syringe IV PRN ×2 (01:10→04:55)
[2019-04-22] MEDS: diatr meglu/diatrizoate 30ml oral sol.-(3 dose) bottle PO SCH ×4 (01:40→20:55)
[2019-04-22 01:48] LABS: PARTIAL THROMBOPLASTIN TIME 29 SECONDS (22-32)
[2019-04-22 01:55] LABS: ALANINE AMINOTRANSFERASE 27 U/L (12-78); ALBUMIN 3.8 G/DL (3.4-5.0); ALBUMIN/GLOBULIN RATIO 1.2 (1.1-1.5); ALKALINE PHOSPHATASE 50 IU/L (46-116); ANION GAP 7 (8-16); ASPARTATE AMINO TRANSFERASE 21 U/L (10-37); BILIRUBIN,TOTAL 0.7 MG/DL (0.1-1.0); BLOOD UREA NITROGEN 20 MG/DL (7-18); BUN/CREATININE RATIO 16.5 (5.4-32.0); CHLORIDE 106 MMOL/L (99-107); CREATININE 1.21 MG/DL (0.60-1.10); GLUCOSE 96 MG/DL (70-104); LIPASE 105 U/L (73-393); POTASSIUM 4.1 MMOL/L (3.5-5.1); SODIUM 141 MMOL/L (135-145); TOTAL PROTEIN 7.1 G/DL (6.4-8.2); eGFR 59 ML/MIN
[2019-04-22] MEDS ORDERED: iohexol 300mg/ml 100ml inj. ONE (02:06)
[2019-04-22 03:21] LABS: BASOPHILS % (AUTO) 0.3 % (0-1); EOSINOPHILS % (AUTO) 0.3 % (0-6); HEMATOCRIT 42.9 % (42.0-52.0); HEMOGLOBIN 14.3 g/dl (14.0-17.9); LYMPHOCYTES # (AUTO) 0.6 X10'3 (1.1-4.8); MEAN CORPUSCULAR HEMOGLOBIN 28.2 PG (27.0-31.0); MEAN CORPUSCULAR HGB CONC 33.3 g/dL (33.0-36.5); MEAN CORPUSCULAR VOLUME 84.7 FL (78-98); MEAN PLATELET VOLUME 8.9 FL (7.4-10.4); MONOCYTES # (AUTO) 0.4 X10'3 (0-0.9); MONOCYTES % (AUTO) 5.9 % (2-12); NEUTROPHILS # (AUTO) 5.6 X10'3 (1.8-7.7); NEUTROPHILS % (AUTO) 84.5 % (42-75); PLATELET COUNT 184 X10'3 (140-440); RED BLOOD COUNT 5.07 X10'6 (4.70-6.10); RED CELL DISTRIBUTION WIDTH 12.8 % (11.5-14.5); WHITE BLOOD COUNT 6.6 X10'3 (4.5-11.0)
[2019-04-22] MEDS ORDERED: DOCU-329 PO (04:01)
[2019-04-22] MEDS ORDERED: SENN-162 PO (04:01)
[2019-04-22] MEDS ORDERED: AMIO200T61 PO (04:02)
[2019-04-22] MEDS: normal saline 1000ml 1,000 ML IV SCH ×2 (04:54→15:00)
[2019-04-22] MEDS ORDERED: magnesium 4gm in 100ml NS 100 ML IV PRN (04:55)
[2019-04-22] MEDS ORDERED: magnesium 2GM in 50ml NS 50 ML IV PRN (04:55)
[2019-04-22] MEDS ORDERED: ondansetron/PF 4mg/2ml inj IV PRN (04:55)
[2019-04-22] MEDS ORDERED: magnesium Cl slow-release 64mg tablet PO PRN (04:55)
[2019-04-22] MEDS ORDERED: potassium CL 10mEq/100ml bag 100 ML IV PRN ×2 (04:55)
[2019-04-22] MEDS ORDERED: potassium Cl 20 mEq SR tablet PO PRN ×2 (04:55)
[2019-04-22 07:35] VITALS: BP 118/72
--- NOTE | 2019-04-22 07:35 | NUR ---
Patient in room, VSS.
--- NOTE | 2019-04-22 07:35 | NUR ---
Patient in room [facility]. I have received report from Sangeetha Suárez and had the opportunity to ask questions and assume patient care.
[2019-04-22] MEDS: K and/or MAG REPLACEMENT MC SCH (08:21)
[2019-04-22 08:31] LABS: CLARITY,URINE CLEAR (Clear); COLOR,URINE YELLOW (Yellow); GLUCOSE, URINE NEGATIVE (Neg); KETONES,URINE 15 mg/dl (Neg); LEUKOCYTE ESTERASE ,URINE NEGATIVE (Neg); NITRITES, URINE NEGATIVE (Neg); OCCULT BLOOD,URINE TRACE-INTACT (Neg); PH,URINE 5.5 (4.8-8.0); PROTEIN,URINE NEGATIVE (Neg); UROBILINOGEN,URINE 0.2 E.U/dL (0.2-1.0)
[2019-04-22 08:38] LABS: UA COLLECTION TYPE CLN CATCH MIDSTREAM
[2019-04-22 08:41] LABS: SQUAMOUS EPITHELIAL CELL,UR NONE SEEN /LPF (FEW)
[2019-04-22 08:42] LABS: BACTERIA,URINE NONE SEEN /HPF (Neg); RBC,URINE NONE SEEN /HPF (0-2); WBC,URINE 0-4 /HPF (0-4)
[2019-04-22 12:18] VITALS: BP 122/70
[2019-04-22] MEDS ORDERED: amiodarone 200mg tablet PO ONE (16:35)
--- NOTE | 2019-04-22 18:19 | NUR ---
Patient up walking many laps around the unit. Patient states that he has been passing gas more frequently. Prepping patient for CT in the AM. Report given to Patricia COUGHLIN. Patient is NPO currently. Showered today.
--- NOTE | 2019-04-22 18:20 | NUR ---
Patient in room [facility]. I have received report from Dianna COUGHLIN and had the opportunity to ask questions and assume patient care.
[2019-04-22 19:00] VITALS: BP 112/65
[2019-04-22] MEDS: docusate sod 250mg capsule PO SCH (20:53)
[2019-04-22] MEDS: sennosides 8.6mg tablet PO SCH (20:53)
[2019-04-22] MEDS ORDERED: atorvastatin 20mg tablet PO SCH (21:00)
[2019-04-22] MEDS ORDERED: non-formulary drug (Simvastatin* (Zocor*) 2 TAB) PO SCH (21:00)
[2019-04-23] VITALS: BP 109/70
[2019-04-23] MEDS: normal saline 1000ml 1,000 ML IV SCH ×2 (01:08→08:02)
[2019-04-23 06:02] LABS: BASOPHILS % (AUTO) 0.8 % (0-1); EOSINOPHILS # (AUTO) 0.1 X10'3 (0-0.9); EOSINOPHILS % (AUTO) 2.8 % (0-6); HEMATOCRIT 40.5 % (42.0-52.0); HEMOGLOBIN 13.8 g/dl (14.0-17.9); LYMPHOCYTES # (AUTO) 0.9 X10'3 (1.1-4.8); LYMPHOCYTES % (AUTO) 22.1 % (21-51); MEAN CORPUSCULAR HEMOGLOBIN 28.4 PG (27.0-31.0); MEAN CORPUSCULAR HGB CONC 34.1 g/dL (33.0-36.5); MEAN CORPUSCULAR VOLUME 83.1 FL (78-98); MONOCYTES # (AUTO) 0.4 X10'3 (0-0.9); MONOCYTES % (AUTO) 9.2 % (2-12); NEUTROPHILS # (AUTO) 2.5 X10'3 (1.8-7.7); NEUTROPHILS % (AUTO) 65.1 % (42-75); PLATELET COUNT 168 X10'3 (140-440); RED BLOOD COUNT 4.88 X10'6 (4.70-6.10); RED CELL DISTRIBUTION WIDTH 12.8 % (11.5-14.5); WHITE BLOOD COUNT 3.9 X10'3 (4.5-11.0)
[2019-04-23 06:15] LABS: ALBUMIN 3.2 G/DL (3.4-5.0); ANION GAP 8 (8-16); BLOOD UREA NITROGEN 15 MG/DL (7-18); BUN/CREATININE RATIO 14.2 (5.4-32.0); CALCIUM 8.4 MG/DL (8.5-10.1); CHLORIDE 110 MMOL/L (99-107); CREATININE 1.06 MG/DL (0.60-1.10); GLUCOSE 88 MG/DL (70-104); MAGNESIUM 1.8 MG/DL (1.5-2.4); POTASSIUM 4.1 MMOL/L (3.5-5.1); SODIUM 142 MMOL/L (135-145); eGFR 68 ML/MIN
--- NOTE | 2019-04-23 06:30 | NUR ---
Problems reprioritized. Patient report given, questions answered & plan of care reviewed with Tamy COUGHLIN.
[2019-04-23 07:00] VITALS: BP 125/70
[2019-04-23] MEDS ORDERED: vitamin D (cholecalciferol) 1,000 unit tablet PO SCH (08:00)
[2019-04-23] MEDS ORDERED: non-formulary drug (Cholecalciferol (Vitamin D3) (Vitamin D3) 1 TAB) PO SCH (08:00)
[2019-04-23] MEDS ORDERED: cyanocobalamin 500mcg tablet PO SCH (08:00)
[2019-04-23] MEDS: diatr meglu/diatrizoate 30ml oral sol.-(3 dose) bottle PO SCH ×2 (08:00→11:17)
[2019-04-23] MEDS ORDERED: non-formulary drug (Aspirin (Aspir 81) 1 TAB) PO SCH (08:00)
[2019-04-23] MEDS ORDERED: aspirin 81mg tablet.DR PO SCH (08:00)
[2019-04-23] MEDS: K and/or MAG REPLACEMENT MC SCH (08:00)
[2019-04-23] MEDS ORDERED: amiodarone 200mg tablet PO SCH (08:00)
[2019-04-23] MEDS: docusate sod 250mg capsule PO SCH (08:01)
[2019-04-23] MEDS: sennosides 8.6mg tablet PO SCH (08:02)
--- NOTE | 2019-04-23 09:49 | NUR ---
NO PAIN MANAGEMENT NEEDED PT. HAS NO PAIN. Addendum: 04/23/19 at 0951 by Tamy Cordon RN Amended: Links added.
[2019-04-23] MEDS ORDERED: iohexol 300mg/ml 100ml inj. ONE (11:12)
[2019-04-23 11:32] VITALS: BP 100/76
[2019-04-23] MEDS ORDERED: CIPR-230 PO (13:09)
[2019-04-23] MEDS ORDERED: METR500T PO (13:09)
--- NOTE | 2019-04-23 13:21 | NUR ---
MD WANT PT. TO EAT A CLEAR LIQUID DIET. IF HE TOLERATES MEAL HE IS OK TO DISCHARGE. FAXED DIETARY FOR LATE LUNCH TRAY.
--- NOTE | 2019-04-23 15:34 | NUR ---
Pt. tolerated lunch well. No nausea or abd. pain. Called [place] [facility] to give report and request ride. 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 Discharge paperwork reviewed with pt. Pt has already had medications delivered by [facility] ([place], [place]).
--- NOTE | 2019-04-23 16:10 | NUR ---
Pt. discharged in a stable condition. Ambulating independently often. Reviewed discharge paperwork with pt. Reviewed medications with pt. Pt. had both antibiotic delivered by [facility]. [place] called to provide pt. a ride. They are aware pt. has medications on person. IV DC"D, pressure bandage applied, no s/sx bleeding noted. Pt. received valuables he had in hospital safe, gathered all belongings and took them with him. He is aware that he needs a follow up CT with oral contrast within two weeks and to f/u with PCP. [facility] personnel assisted pt. while ambulating out of the hospital to [facility] to go to [place] [facility].
--- NOTE | 2019-04-23 17:45 | NUR ---
Valuables brought up to pt. by security dispatcher from [facility] Addendum: 04/23/19 at 1746 by Tamy Cordon RN Amended: Links added.
== END 2019-04-23 16:08 | disposition home or self-care (01) | DRG 390 ==
LOC: ER 00:59 → OBSVTOIN 07:20 → SUR 3N 07:20
PROVIDERS: ADMIT Internal Medicine; ATTEND Family Medicine
PROC: BW211ZZ Computerized Tomography (CT Scan) of Abdomen and Pelvis using Low Osmolar Contrast (ICD-10-PCS; principal; 2019-04-22)
PROC: BW211ZZ Computerized Tomography (CT Scan) of Abdomen and Pelvis using Low Osmolar Contrast (ICD-10-PCS; 2019-04-23)
DX: K56.609 Unspecified intestinal obstruction, unspecified as to partial versus complete obstruction (principal); K52.9 Noninfective gastroenteritis and colitis, unspecified; Z60.2 Problems related to living alone; E78.00 Pure hypercholesterolemia, unspecified; E78.5 Hyperlipidemia, unspecified; I25.10 Atherosclerotic heart disease of native coronary artery without angina pectoris; I48.2 Chronic atrial fibrillation; Z95.1 Presence of aortocoronary bypass graft
CPT/HCPCS: 36415; 74177; 80048; 80053; 81001; 83605; 83690; 83735; 84484; 85025; 85610; 85730; 87040; 87081; 93005; 96361; 96374; 99285; G0378; J2270; J3420; J7030; Q9963; Q9967

== ENCOUNTER 2019-05-08 08:54 | Outpatient (CLI) | payer MEDICARE, OTHER ==
[~2019-05-08 08:54] MED LIST changes: +CIPR-230 PO; +DOCU-329 PO; -FERR325T28 PO; -HYDR-3972 PO; -METO25TA6 PO; +METR500T PO; +SENN-162 PO
== END 2019-05-08 23:59 | disposition home or self-care (01) ==
LOC: 64 CT 08:54
PROVIDERS: ATTEND Family Medicine
DX: K80.20 Calculus of gallbladder without cholecystitis without obstruction (principal); K59.00 Constipation, unspecified; Z87.19 Personal history of other diseases of the digestive system
CPT/HCPCS: 74176

== ENCOUNTER 2021-07-07 09:04 | Emergency (ER) | payer MEDICARE, OTHER ==
[~2021-07-07] VITALS: Ht 188 cm; Wt 68.2 kg
[~2021-07-07 09:04] MED LIST changes: -CIPR-230 PO; -DOCU-329 PO; +DOCU250C96 PO; -METR500T PO; -SENN-162 PO; +SENN-263 PO; +SIMV-42 PO; -SIMV20TA5 PO
[2021-07-07 09:34] LABS: EOSINOPHILS # (AUTO) 0.1 X10'3 (0-0.9); EOSINOPHILS % (AUTO) 3.2 % (0-6); HEMATOCRIT 46.1 % (42.0-52.0); HEMOGLOBIN 16.2 g/dl (14.0-17.9); LYMPHOCYTES # (AUTO) 0.7 X10'3 (1.1-4.8); LYMPHOCYTES % (AUTO) 17.8 % (21-51); MEAN CORPUSCULAR HEMOGLOBIN 29.6 PG (27.0-31.0); MEAN CORPUSCULAR HGB CONC 35.1 g/dL (33.0-36.5); MEAN CORPUSCULAR VOLUME 84.3 FL (78-98); MEAN PLATELET VOLUME 8.7 FL (7.4-10.4); MONOCYTES # (AUTO) 0.3 X10'3 (0-0.9); MONOCYTES % (AUTO) 7.8 % (2-12); NEUTROPHILS # (AUTO) 2.6 X10'3 (1.8-7.7); NEUTROPHILS % (AUTO) 70.2 % (42-75); PLATELET COUNT 189 X10'3 (140-440); RED BLOOD COUNT 5.48 X10'6 (4.70-6.10); RED CELL DISTRIBUTION WIDTH 12.9 % (11.5-14.5); WHITE BLOOD COUNT 3.7 X10'3 (4.5-11.0)
[2021-07-07 09:49] LABS: ALANINE AMINOTRANSFERASE 30 U/L (12-78); ALBUMIN 4.2 G/DL (3.4-5.0); ALBUMIN/GLOBULIN RATIO 1.2 (1.1-1.5); ALKALINE PHOSPHATASE 64 IU/L (46-116); ANION GAP 9 (8-16); ASPARTATE AMINO TRANSFERASE 25 U/L (10-37); BILIRUBIN,TOTAL 0.6 MG/DL (0.1-1.0); BLOOD UREA NITROGEN 20 MG/DL (7-18); BUN/CREATININE RATIO 16.3 (5.4-32.0); CALCIUM 9.2 MG/DL (8.5-10.1); CHLORIDE 107 MMOL/L (99-107); CREATININE 1.23 MG/DL (0.60-1.10); GLUCOSE 99 MG/DL (70-104); POTASSIUM 4.2 MMOL/L (3.5-5.1); SODIUM 144 MMOL/L (135-145); TOTAL CARBON DIOXIDE 28.2 MMOL/L (24-32); TOTAL PROTEIN 7.8 G/DL (6.4-8.2); eGFR 57 ML/MIN
[2021-07-07 14:02] VITALS: BP 108/82
== END 2021-07-07 14:05 | disposition home or self-care (01) ==
LOC: ER 09:05
DX: R00.2 Palpitations (principal); R07.89 Other chest pain; R00.0 Tachycardia, unspecified; E78.00 Pure hypercholesterolemia, unspecified; Z98.890 Other specified postprocedural states; Z60.2 Problems related to living alone; Z79.82 Long term (current) use of aspirin; Z79.899 Other long term (current) drug therapy
CPT/HCPCS: 36415; 71045; 80053; 83880; 84484; 85025; 93005; 99285

== ENCOUNTER 2021-11-24 13:45 | Outpatient (CLI) | payer MEDICARE, OTHER ==
[2021-11-24 14:16] LABS: TOTAL HEMOGLOBIN 14.6 G/dl (14.0-18.0)
== END 2021-11-24 23:59 | disposition home or self-care (01) ==
LOC: RT 13:45
PROVIDERS: ATTEND Family Medicine
DX: R06.02 Shortness of breath (principal); Z79.899 Other long term (current) drug therapy
CPT/HCPCS: 85018; 94010; 94729